=== PATIENT | female | born 1975 | race Caucasian/White ===

== ENCOUNTER 2020-10-31 12:47 | Outpatient (CLI) | payer OTHER, SELFPAY ==
[2020-11-04 22:26] LABS: Estradiol, Ultrasensitive 224 pg/mL
== END 2020-10-31 12:48 | disposition home or self-care (01) ==
LOC: CHSLAB 12:53
PROVIDERS: PCP Physician Assistant; Visit Provider Obstetrics & Gynecology
DX: N95.1 Menopausal and female climacteric states (principal)
CPT/HCPCS: 36415; 82670; 83001

== ENCOUNTER 2020-12-27 22:04 | Emergency (ER) | payer OTHER, SELFPAY ==
[2020-12-27 22:15] VITALS: BP 124/89; PULSE 88; RESP 20; TEMP 36.6; O2SAT 100
--- NOTE | 2020-12-27 22:24 | ED.EXTPRO ---
HPI - Extremity Problem General Chief complaint: Extremity Problem,Nontraumatic Stated complaint: R leg swelling Time Seen by Provider: 12/27/20 22:24 Source: patient Mode of arrival: ambulatory Limitations: no limitations History of Present Illness HPI Narrative: 45-year-old woman who has a history of smoking comes in today complaining of swelling pain of her right leg from her hip to her ankle. She said the symptoms started 2 days ago. She denies prior similar symptoms. She states for the last few weeks she has had a cough, some mild shortness of breath and nausea. She denies vomiting, chest pain, fever, recent surgery, and hormone use. MD Complaint: extremity pain Onset (ago): day(s) (2) Pain Consistency: constant Location: right and lower extremity Severity scale (1-10): 6 Quality: sharp Radiation: none Relieving factors: rest Exacerbating factors: walking Associated symptoms: shortness of breath Related Data Home Medications Medication Instructions Recorded Confirmed acetaminophen-codeine 1 tablet PO TID 12/27/20 12/27/20 albuterol sulfate 2 puff INHALATION PRN 12/27/20 12/27/20 cyclobenzaprine 10 mg PO TID 12/27/20 12/27/20 diazepam 5 mg PO HS 12/27/20 12/27/20 gabapentin 600 mg PO TID 12/27/20 12/27/20 trazodone 100 mg PO HS 12/27/20 12/27/20 venlafaxine 150 mg PO DAILY 12/27/20 12/27/20 Allergies Allergy/AdvReac Type Severity Reaction Status Date / Time No Known Allergies Allergy Mild Unverified 11/11/05 14:05 NKDA Allergy Mild Uncoded 09/11/05 11:21 NKFA Allergy Unknown Uncoded 12/06/02 12:22 NO KNOWN DRUG ALLERGIES Allergy Unknown Y Uncoded 09/11/05 11:21 (Class Allergy) Review of Systems Review of Systems: All systems reviewed & are unremarkable except as noted in HPI and below Constitutional: Constitutional: Denies chills and Denies fever(s) ENT: Denies nasal congestion and Denies sore throat Cardiovascular: Cardiovascular: Denies chest pain and Denies radiating jaw, neck or arm pain Respiratory: Respiratory: Reports cough and Reports dyspnea Gastrointestinal: Gastrointestinal: Denies abdominal pain, Reports nausea and Denies vomiting Genitourinary: Genitourinary: Denies nocturia and Denies dysuria Musculoskeletal: Musculoskeletal: Denies arthralgias and Denies joint swelling Integumentary/Breasts: Skin/Breast: Denies pruritus, Denies erythema and Denies rash Neurologic: Denies vertigo, Denies dizziness and Denies syncope Hematologic/Lymphatic: Hematologic/Lymphatic: Denies easy bleeding and Denies easy bruising Allergic/Immunologic: Allergic/Immunologic: Denies lip swelling and Denies throat swelling PMFSH Past Medical History Medical History (Updated 12/28/20 @ 00:09 by Edgar Blackwood MD) Fibromyalgia Surgical History Surgical History (Updated 12/27/20 @ 22:40 by Edgar Blackwood MD) History of hysterectomy Hx of cholecystectomy Social History Social History (Updated 12/27/20 @ 22:41 by Edgar Blackwood MD) Smoking status: Current every day smoker Substance use: current Substance use type: marijuana Living arrangements: with family Exam Const: General: healthy appearing, no acute distress and alert Orientation/consciousness: patient oriented x3 Limitations: no limitations Eyes: Conjunctivae: conjunctivae normal Pupils: Equal, round and reactive pupils present EOM: EOMs intact bilaterally Resp: Effort & Inspection: normal respiratory effort and not labored Auscultation: clear to auscultation bilaterally, no rales, no rhonchi and no wheezes Cardio: Rate: regular rate Rhythm: regular rhythm Heart sounds: no murmurs Skin: General skin exam: normal color, no jaundice and no pallor Rashes: no rashes Neuro: General: patient oriented x3, moves all extremities, no focal motor deficits and CN's II-XI intact bilaterally Speech: normal speech Extrem: General: normal to inspection and no clubbing, cyanosis or edema Other: Mild tendernes
--- NOTE | 2020-12-27 22:36 | ECG_ITS ---
Measurements Intervals [place] Rate: 85 P: 76 WI: 141 QRS: 35 QRSD: 105 T: 57 QT: 374 QTc: 446 Interpretive Statements SINUS RHYTHM INCOMPLETE RIGHT BUNDLE BRANCH BLOCK DELAYED PRECORDIAL R/S TRANSITION BORDERLINE ECG Electronically Signed On 12-28-2020 6:44:29 CDT by Kane Guy D.O.
[2020-12-27 22:46] LABS: Basophils Absolute Auto 0.05 K/mm3 (0.00-0.10); Basophils Percent Auto 0.6 % (0.0-1.0); Eosinophils Absolute Auto 0.23 K/mm3 (0.02-0.50); Eosinophils Percent Auto 2.9 % (1.0-6.0); Hematocrit 39.5 % (35.0-49.0); Hemoglobin 13.5 g/dL (12.0-15.0); Immature Granulocyte Absolute 0.03 K/mm3 (0.00-0.00); Immature Granulocyte Percent A 0.4 % (0.0-0.0); Lymphocytes Absolute Auto 2.42 K/mm3 (1.10-4.50); Lymphocytes Percent Auto 30.9 % (18.0-42.0); Mean Corpuscular HGB Conc 34.2 g/dL (32.0-36.0); Mean Corpuscular Hemoglobin 30.6 pg (27.0-31.0); Mean Corpuscular Volume 89.6 fL (78.0-102.0); Monocytes Absolute Auto 0.43 K/mm3 (0.10-0.90); Monocytes Percent Auto 5.5 % (2.0-11.0); Neutrophils Absolute Auto 4.7 K/mm3 (1.7-7.2); Neutrophils Percent Auto 59.7 % (50.0-70.0); Platelet Count Result 244 K/mm3 (150-420); Red Blood Count 4.41 M/mm3 (4.20-5.40); Red Cell Distribution Width 12.5 % (11.6-14.4); White Blood Count 7.8 K/mm3 (4.8-10.8)
[2020-12-27 23:00] LABS: D Dimer 0.34 mg/L (0.19-0.50); INR 1.1; Partial Thromboplastin Time 28.2 SEC (23.90-30.70); Prothrombin Time 11.4 Seconds (9.50-12.10)
[2020-12-27 23:12] LABS: Alanine Aminotransferase 16 U/L (14-59); Albumin Level 3.7 g/dL (3.4-5.0); Alkaline Phosphatase 59 U/L (46-116); Anion Gap 10 mmol/L (8-16); Aspartate Amino Transferase 12 U/L (15-37); Bilirubin,Total 0.3 mg/dL (0.00-1.00); Blood Urea Nitrogen 6 mg/dL (7-18); Calcium 8.6 mg/dL (8.5-10.1); Carbon Dioxide 27 mmol/L (21-32); Chloride 105 mmol/L (98-108); Estimated CRCL calculation 73 ml/min; Estimated Glomerular Filt Rate > 60; Glucose 88 mg/dL (70-99); NT Pro B Type Natriuretic Pept 65 pg/mL (0-125); Osmolality Calculated 290 mOsm/kg (285-295); Potassium 3.4 mmol/L (3.5-5.1); Sodium 142 mmol/L (136-145); Total Protein 6.8 g/dL (6.4-8.2); Troponin I 4.3 ng/L (0.00-60.4)
[2020-12-28 00:25] VITALS: BP 127/79; PULSE 81; RESP 18; TEMP 36.2; O2SAT 99
== END 2020-12-28 00:27 | disposition home or self-care (01) ==
PROVIDERS: Emergency Provider Emergency Medicine; PCP Physician Assistant
DX: M79.604 Pain in right leg (principal); M79.7 Fibromyalgia; F17.200 Nicotine dependence, unspecified, uncomplicated; Z90.710 Acquired absence of both cervix and uterus; Z90.49 Acquired absence of other specified parts of digestive tract
CPT/HCPCS: 36415; 80053; 83880; 84484; 85025; 85380; 85610; 85730; 93005; 99283; 99284

== ENCOUNTER 2021-02-13 16:51 | Outpatient (CLI) | payer OTHER, SELFPAY ==
[2021-02-13 19:34] LABS: SARS-CoV-2 RNA PCR Negative (Negative)
== END 2021-02-13 16:52 | disposition home or self-care (01) ==
PROVIDERS: PCP Physician Assistant; Visit Provider Physician Assistant
DX: Z20.822 Contact with and (suspected) exposure to COVID-19 (principal)
CPT/HCPCS: C9803; U0003; U0005

== ENCOUNTER 2022-05-19 09:14 | Outpatient (CLI) | payer OTHER, SELFPAY ==
--- NOTE | ~2022-05-19 | MMUS_ITS ---
CORRECTED REPORT order change J[facility] 05/20/22 This report was recreated on 05/20/22. Original report was signed by Isac Cleary M.D. 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 CAD analysis was submitted and interpreted. High resolution limited bilateral breast ultrasound was performed. COMPARISON: None, baseline BREAST PARENCHYMAL COMPOSITION: There are scattered areas of fibroglandular density. FINDINGS: MAMMOGRAPHIC FINDINGS: Right breast: No suspicious mass, calcification, or architectural distortion are identified to suggest malignancy. No mammographic correlate is identified for the reported palpable abnormality of concern. Left breast: No suspicious mass, calcification, or architectural distortion are identified to suggest malignancy. An asymmetry is present in the posterior third of the slightly inner breast which mostly disperses with spot compression. ULTRASOUND: There is no evidence of focal abnormal solid or cystic mass in the vicinity of the reported palpable abnormality of concern in the right breast. Two small cysts are present at the 11:00 location 9 cm from the nipple in the left breast which measure up to 4 mm. IMPRESSION: 1. No specific mammographic or sonographic correlate is identified for the reported palpable abnormalities concern in the right breast. Further evaluation at this time should be based on clinical assessment. Continued follow-up physical examination is recommended. 2. Recommend routine screening mammography in one year. BI-RADS Category 2: Benign finding(s). Reviewed, dictated and finalized at location A. CLE MONITOR TECHNICIAN MTDD IMPRESSION: 1. No specific mammographic or sonographic correlate is identified for the repo rted palpable abnormalities concern in the right breast. Further evaluation at this time should be based on clinical assessment. Continued follow-up physical examination is recommended. 2. Recommend routine screening mammography in one year. BI-RADS Category 2: Benign finding(s).
== END 2022-05-19 09:15 | disposition home or self-care (01) ==
LOC: CHSIMG 09:15
PROVIDERS: PCP Physician Assistant; Visit Provider Student in an Organized Health Care Education/Training Program
DX: N63.11 Unspecified lump in the right breast, upper outer quadrant (principal)
CPT/HCPCS: 76642; 77062; 77066; G0279

== ENCOUNTER 2022-07-07 10:38 | Emergency (ER) | payer OTHER, SELFPAY ==
[2022-07-07 10:40] VITALS: BP 119/86; PULSE 96; RESP 16; TEMP 36.8; O2SAT 98
[2022-07-07 10:42] VITALS: BP 119/96; PULSE 96; RESP 14; TEMP 36.8; O2SAT 98
--- NOTE | 2022-07-07 11:03 | ED.GENADULT ---
HPI - General Adult General Chief complaint: Extremity Injury, Lower Stated complaint: right leg pain Time Seen by Provider: 07/07/22 10:57 History of Present Illness HPI narrative: The patient is a 46-year-old woman with history of fibromyalgia for which she takes gabapentin 600 mg p.o. t.i.d. as well as Flexeril 10 mg t.i.d.. She does have history of anxiety for which she takes diazepam 5 mg at nighttime. Also with hypertension. She has had a total hysterectomy. She does lift objects at work. She also supported her mother who almost fell 2 days ago. She broke her fall. Soon after that event, the patient noticed pain in the right lower back more lateral than medial that radiates down the right leg to the toes. The pain has increased in intensity, is constant in nature, worsened by movement or raising of the right leg. No pain on the left side. No falls. No other trauma. No urinary symptoms. She has taken Tylenol for this pain. She cannot take NSAIDs. Related Data Home Medications Medication Instructions Recorded Confirmed albuterol sulfate 90 mcg/actuation 2 puff inhalation PRN 12/27/20 07/07/22 aerosol inhaler cyclobenzaprine 10 mg tablet 10 mg PO TID 12/27/20 07/07/22 diazepam 5 mg tablet 5 mg PO HS 12/27/20 07/07/22 gabapentin 600 mg tablet 600 mg PO TID 12/27/20 07/07/22 venlafaxine 150 mg 150 mg PO DAILY 12/27/20 07/07/22 capsule,extended release 24 hr atenolol 50 mg tablet 50 mg PO DAILY 05/05/22 07/07/22 Allergies Allergy/AdvReac Type Severity Reaction Status Date / Time Iodinated Contrast Media Allergy Intermediate Rash Verified 07/07/22 10:56 meloxicam Allergy Intermediate Rash Verified 07/07/22 10:56 Review of Systems Review of Systems: All systems reviewed & are unremarkable except as noted in HPI and below Constitutional: Constitutional: Reports no additional constitutional complaints, Denies anorexia, Denies body ache(s), Denies chills, Denies excessive sweating, Denies fatigue, Denies fever(s), Denies frequent falls, Denies headache(s), Denies malaise and Denies poor appetite Eyes: Eyes: Reports no additional eye complaints, Denies blurry vision, Denies change in vision, Denies irritation, Denies itchy eyes and Denies photophobia ENT: Reports system reviewed and no additional complaints, except as documented, Reports Normal hearing present, Denies change in voice, Denies dysphagia, Denies vertigo, Denies dizziness, Denies ear discharge, Denies headache(s), Denies hearing loss, Denies hoarseness, Denies nasal congestion, Denies neck pain, Denies sinus pressure, Denies sore throat and Denies throat swelling Cardiovascular: Cardiovascular: Reports no additional cardiovascular complaints, Denies chest pain, Denies syncope, Denies rapid heart rate, Denies irregular heart rhythm, Denies leg edema, Denies dyspnea and Denies slow heart rate Respiratory: Respiratory: Reports no additional respiratory complaints, Denies cough, Denies dyspnea, Denies stridor and Denies wheezing Gastrointestinal: Gastrointestinal: Reports no additional gastrointestinal complaints, Denies abdominal pain, Denies melena, Denies hematochezia, Denies dysphagia, Denies diarrhea, Denies nausea and Denies vomiting Genitourinary: Genitourinary: Denies hematuria, Denies urinary frequency, Denies dysuria, Denies flank pain and Denies urinary urgency Musculoskeletal: Musculoskeletal: Reports no additional musculoskeletal complaints, Reports abnormal gait, Reports back pain ( Right lower back pain radiates to the right leg and foot), Denies myalgias, Denies arthralgias, Denies joint swelling, Denies limited range of motion, Denies muscle cramps, Denies muscle weakness, Denies neck pain and Denies numbness Integumentary/Breasts: Skin/Breast: Reports system reviewed and no additional complaints, except as docu, Denies breast pain, Denies change in pigmentation, Denies pruritus, Denies erythema and Denies wounds Neurologic: Reports system revi
[2022-07-07 11:20] VITALS: BP 121/64; PULSE 84; RESP 18; TEMP 36.7; O2SAT 98
[2022-07-07] MEDS: ORPHENADRINE CITRATE 30 MG/ML 2 ML VIAL 60 MG IM (11:50)
[2022-07-07] MEDS: HYDROmorphone HCL INJ (*CRX) 2 MG/ML VIAL 1 MG IM (11:50)
[2022-07-07 12:02] LABS: Add Urine Microscopic? YES; Bilirubin Urine Negative (Negative); Blood Urine Trace-Intact (Negative); Color Urine Yellow (Yellow); Glucose Urine UA Negative (Negative); Ketones Urine Trace (Negative); Leukocyte Esterase Ur Negative LEU/UL (Negative); Nitrate Urine Negative (Negative); Protein Urine Negative (Negative); Specific Grav Ur 1.025 (1.010-1.020); Urobilinogen Urine 0.2 mg/dL (0.2-1.0)
[2022-07-07 12:07] LABS: Appearance Urine Cloudy (Clear); RBC Urine 0-2 /hpf (0-2); Squamous Epithelial Cell Urine Moderate /hpf (Few); WBC Urine None seen /hpf (0-3)
[2022-07-07 12:08] LABS: Bacteria Urine 2+ /hpf; Mucus Urine Moderate /lpf
[2022-07-07 12:09] LABS: Amphetamine Screen Urine Negative (Negative); Barbiturate Screen Urine Negative (Negative); Benzodiazepines Screen Urine Positive (Negative); Cannabinoid Screen Urine Positive (Negative); Cocaine Screen Urine Negative (Negative); Methadone Screen Urine Negative (Negative); Opiate Screen Urine Positive (Negative); Phencyclidine Screen Urine Negative (Negative)
[2022-07-07 12:40] VITALS: BP 113/77; PULSE 80; RESP 12; TEMP 36.8; O2SAT 97
== END 2022-07-07 12:46 | disposition home or self-care (01) ==
PROVIDERS: Emergency Provider Emergency Medicine
DX: M54.41 Lumbago with sciatica, right side (principal); F41.9 Anxiety disorder, unspecified; I10 Essential (primary) hypertension; J45.909 Unspecified asthma, uncomplicated; F17.200 Nicotine dependence, unspecified, uncomplicated; Z79.899 Other long term (current) drug therapy
CPT/HCPCS: 80307; 81001; 96372; 99284; J1170; J2360

== ENCOUNTER 2022-09-16 13:08 | Emergency (ER) | payer OTHER, SELFPAY ==
--- NOTE | 2022-09-16 13:10 | ED.NECK ---
HPI - Neck Pain/Injury General Chief Complaint: Neck Pain/Injury Stated Complaint: left neck, arm pain Time Seen by Provider: 09/16/22 13:09 Source: patient and RN notes reviewed Mode of arrival: ambulatory Limitations: no limitations History of Present Illness complaint: neck pain Onset (ago): day(s) (2) Place: home Severity: moderate Quality: dull, aching and throbbing Duration: constant Relieving factors: none Exacerbating factors: movement of extremity and movement of neck Context: unknown ( history of fibromyalgia) Associated symptoms: tingling Treatments prior to arrival: acetaminophen, ibuprofen and other ( Flexeril) Related Data Home Medications Medication Instructions Recorded Confirmed albuterol sulfate 90 mcg/actuation 2 puff inhalation PRN 12/27/20 09/16/22 aerosol inhaler cyclobenzaprine 10 mg tablet 10 mg PO TID 12/27/20 09/16/22 diazepam 5 mg tablet 5 mg PO HS 12/27/20 09/16/22 gabapentin 600 mg tablet 600 mg PO TID 12/27/20 09/16/22 venlafaxine 150 mg 150 mg PO DAILY 12/27/20 09/16/22 capsule,extended release 24 hr atenolol 50 mg tablet 50 mg PO DAILY 05/05/22 09/16/22 Allergies Allergy/AdvReac Type Severity Reaction Status Date / Time Iodinated Contrast Media Allergy Intermediate Rash Verified 09/16/22 13:12 meloxicam Allergy Intermediate Rash Verified 09/16/22 13:12 Review of Systems Review of Systems: All systems reviewed & are unremarkable except as noted in HPI and below PMFSH Past Medical History Medical History Anxiety Asthma Fibromyalgia Hypertension Surgical History Surgical History History of dilation and curettage 2005, 09/2005 History of hysterectomy (~11/11/05) History of laparoscopy (~09/2005) Hx of cholecystectomy (~2014) Family History Family History Mother Hypertension Grandparent Acute myocardial infarction maternal grandfather maternal grandmother Family history of stroke maternal grandmother Social History Social History Smoking status: Current every day smoker Alcohol intake: never Substance use: current Substance use type: marijuana Living arrangements: with family Occupation/Education: occupation Gender identity (if verbalized by the patient): Female Sexual Orientation (if Verbalized by the Patient): Straight or Heterosexual Exam Const: General: healthy appearing, no acute distress and alert Nutritional Appearance: well nourished Orientation/consciousness: patient oriented x3 Limitations: no limitations Other: female nurse in room during examination. HENMT: Head: normal to inspection Ears: external ears normal Face/Nose/Sinus: Normal external nose present Face and sinus: normal facial exam Mouth: Yes moist mucous membranes Eyes: Conjunctivae: conjunctivae normal Pupils: Equal, round and reactive pupils present EOM: EOMs intact bilaterally Neck: Neck: normal visual inspection Resp: Effort & Inspection: normal respiratory effort Auscultation: clear to auscultation bilaterally Cardio: Rate: regular rate Rhythm: regular rhythm GI: GI Palp: Yes Soft to palpation and No Tenderness to palpation present (GI) Auscultation: normal bowel sounds Back/Spine/Pelvis: Cervical Spine: cervical muscular tenderness ( Moderate left in the area of C4-C5), pain with cervical ROM (left), cervical spasm ( down into the trapezius), No Cervical spine tenderness, cervical ROM abnormal ( decreased ROM with active ROM full ROM with passive ROM) and other ( pain with Spurling's maneuver reproduces her symptoms.) Thoracic/Lumbar Spine: thoraco-lumbar ROM normal Skin: General skin exam: normal color Rashes: no rashes Neuro: General: patient oriented x3, moves all extremities and CN's II-XI intact bilaterally Mariah
[2022-09-16 13:11] VITALS: BP 150/97; PULSE 71; RESP 18; TEMP 36.8; O2SAT 99
[2022-09-16 13:14] VITALS: BP 150/97; PULSE 71; RESP 18; TEMP 36.8; O2SAT 99
--- NOTE | 2022-09-16 13:18 | PC.NURSE ---
assisted with exam
[2022-09-16] MEDS: ORPHENADRINE CITRATE 30 MG/ML 2 ML VIAL 60 MG IM (13:35)
--- NOTE | 2022-09-16 13:56 | PC.NURSE ---
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 PT HAD REFUSED TORADOL, STATING SHE IS NOT SUPPOSED TO TAKE IT, IT THROWS ME INTO AN ASTHMA ATTACK . PT POLITELY ADVISED THIS RN SHE COULD FUCK OFF. I ADVISED PT WHEN SHE WAS READY TO SPEAK APPROPRIATELY TO STAFF, I WOULD BE MORE THAN HAPPY TO ASSIST HER WITH HER ISSUES. PT THEN COMES OUT TO THE DESK WANTING A NOTE FOR THE 3 DAYS OF WORK SHE HAS MISSED. I OFFERED TO GIVE HER A NOTE FOR THE VISIT FOR TODAY, WAS AGAIN TOLD TO FUCK OFF AND SHE LEFT WITHOUT THE NOTE.
== END 2022-09-16 13:45 | disposition home or self-care (01) ==
LOC: CHSED 13:37
PROVIDERS: Emergency Provider Emergency Medicine; PCP Physician Assistant
DX: S16.1XXA Strain of muscle, fascia and tendon at neck level, initial encounter (principal); I10 Essential (primary) hypertension; F41.9 Anxiety disorder, unspecified; F17.200 Nicotine dependence, unspecified, uncomplicated; X58.XXXA Exposure to other specified factors, initial encounter
CPT/HCPCS: 96372; 99283; J2360

== ENCOUNTER 2022-11-13 13:37 | Emergency (ER) | payer OTHER, SELFPAY ==
--- NOTE | ~2022-11-13 | XR_ITS ---
EXAMINATION: XR chest 2V DATE: 11/13/2022 14:24 INDICATION: Left sided chest pain TECHNIQUE: PA and lateral views of the chest are obtained. COMPARISON: 10/03/2014 FINDINGS: The lungs are free of acute opacities. No pleural effusion or pneumothorax. The cardiomedia stinal silhouette is normal. There is mild thoracic spondylosis. Surgical clips in the right upper qu adrant are likely from prior cholecystectomy. IMPRESSION: 1. No acute cardiopulmonary abnormality. Reviewed, dictated and finalized at location L.
[2022-11-13 13:44] VITALS: BP 110/75; PULSE 70; TEMP 36.1; O2SAT 96
[2022-11-13 13:55] VITALS: PULSE 65; O2SAT 96
[2022-11-13 14:40] VITALS: BP 131/62; PULSE 90; RESP 20; O2SAT 96
[2022-11-13 14:44] LABS: Basophils Absolute Auto 0.05 K/mm3 (0.00-0.10); Basophils Percent Auto 0.7 % (0.0-1.0); Eosinophils Absolute Auto 0.24 K/mm3 (0.02-0.50); Eosinophils Percent Auto 3.4 % (1.0-6.0); Hematocrit 39.8 % (35.0-49.0); Hemoglobin 13.5 g/dL (12.0-15.0); Immature Granulocyte Absolute 0.01 K/mm3 (0.00-0.00); Immature Granulocyte Percent A 0.1 % (0.0-0.0); Lymphocytes Absolute Auto 3.35 K/mm3 (1.10-4.50); Lymphocytes Percent Auto 47.1 % (18.0-42.0); Mean Corpuscular HGB Conc 33.9 g/dL (32.0-36.0); Mean Corpuscular Volume 91.3 fL (78.0-102.0); Mean Platelet Volume 9.4 fl (9.2-11.8); Monocytes Absolute Auto 0.41 K/mm3 (0.10-0.90); Monocytes Percent Auto 5.8 % (2.0-11.0); Neutrophils Absolute Auto 3.1 K/mm3 (1.7-7.2); Neutrophils Percent Auto 42.9 % (50.0-70.0); Platelet Count Result 275 K/mm3 (150-420); Red Blood Count 4.36 M/mm3 (4.20-5.40); White Blood Count 7.1 K/mm3 (4.8-10.8)
[2022-11-13 14:51] LABS: Partial Thromboplastin Time 30.3 SEC (23.90-30.70); Prothrombin Time 11.1 Seconds (9.50-12.10)
[2022-11-13 14:56] LABS: Alanine Aminotransferase 13 U/L (14-59); Albumin Level 3.5 g/dL (3.4-5.0); Alkaline Phosphatase 65 U/L (46-116); Anion Gap 9 mmol/L (8-16); Aspartate Amino Transferase 17 U/L (15-37); Bilirubin,Total 0.3 mg/dL (0.00-1.00); Blood Urea Nitrogen 5 mg/dL (7-18); Calcium 8.8 mg/dL (8.5-10.1); Carbon Dioxide 26 mmol/L (21-32); Chloride 104 mmol/L (98-108); Estimated CRCL calculation 72 ml/min; Estimated Glomerular Filt Rate > 60; Glucose 96 mg/dL (70-99); Lipase 38 U/L (16-77); Osmolality Calculated 285 mOsm/kg (285-295); Potassium 3.3 mmol/L (3.5-5.1); Sodium 139 mmol/L (136-145); Total Protein 6.9 g/dL (6.4-8.2); Troponin I 5.4 ng/L (0.00-60.4)
--- NOTE | 2022-11-13 15:18 | ED.CHESTPAIN ---
HPI - Chest Pain General Chief Complaint: Chest Pain Stated Complaint: chest pain/pain in arm Time Seen by Provider: 11/13/22 13:41 Source: patient Mode of arrival: ambulatory Limitations: no limitations History of Present Illness HPI narrative: this is a 47-year-old female that presents with left-sided chest discomfort that is from radiating to her left arm started earlier today and it is reproducible with palpation with no shortness of breath no fever chills no nausea vomiting no diaphoresis. The patient has a history of fibromyalgia. MD complaint: chest pain and chest discomfort Onset (ago): hour(s) Timing of current episode: constant Prior episodes: Yes Onset: during rest Related Data Home Medications Medication Instructions Recorded Confirmed albuterol sulfate 90 mcg/actuation 2 puff inhalation PRN 12/27/20 11/13/22 aerosol inhaler cyclobenzaprine 10 mg tablet 10 mg PO TID 12/27/20 11/13/22 diazepam 5 mg tablet 5 mg PO HS 12/27/20 11/13/22 gabapentin 600 mg tablet 600 mg PO TID 12/27/20 11/13/22 venlafaxine 150 mg 150 mg PO DAILY 12/27/20 11/13/22 capsule,extended release 24 hr atenolol 50 mg tablet 50 mg PO DAILY 05/05/22 11/13/22 Allergies Allergy/AdvReac Type Severity Reaction Status Date / Time Iodinated Contrast Media Allergy Intermediate Rash Verified 11/13/22 13:52 meloxicam Allergy Intermediate Rash Verified 11/13/22 13:52 Review of Systems Review of Systems: All systems reviewed & are unremarkable except as noted in HPI and below PMFSH Past Medical History Medical History Anxiety Asthma Fibromyalgia Hypertension Surgical History Surgical History History of dilation and curettage 2005, 09/2005 History of hysterectomy (~11/11/05) History of laparoscopy (~09/2005) Hx of cholecystectomy (~2014) Family History Family History Mother Hypertension Grandparent Acute myocardial infarction maternal grandfather maternal grandmother Family history of stroke maternal grandmother Social History Social History Smoking status: Current every day smoker Alcohol intake: never Substance use: current Substance use type: marijuana Living arrangements: with family Occupation/Education: occupation Gender identity (if verbalized by the patient): Female Sexual Orientation (if Verbalized by the Patient): Straight or Heterosexual Exam Const: General: healthy appearing Nutritional Appearance: well nourished Orientation/consciousness: patient oriented x3 Limitations: no limitations HENMT: Head: normal to inspection Eyes: Conjunctivae: conjunctivae normal Pupils: Equal, round and reactive pupils present Neck: Neck: normal visual inspection Chest: Chest palpation & inspection: normal inspection of the chest and tenderness Other: Reproducible chest wall tenderness with palpation Cardio: Rate: regular rate Rhythm: regular rhythm GI: GI Palp: Yes Soft to palpation Auscultation: normal bowel sounds : General: Yes bladder normal to palpation Back/Spine/Pelvis: Back: no CVA tenderness Skin: General skin exam: normal color Neuro: General: patient oriented x3 Extrem: General: normal to inspection Psych: Mental Status: mental status grossly normal Affect: normal affect Course Course Emergency Course: patient declined pain medication, did receive IV fluids troponins EKG reviewed were reviewed with patient and within normal limits, EKG shows normal sinus rhythm the patient is feeling better. Labs reviewed did show that there was a diminished potassium level and patient given a dose of p.o. potassium. Vital Signs Vital signs: Vital Signs Temperature 36.1 C L 11/13/22 13:44 Pulse Rate 70 11/13/22 13:44 Blood
[2022-11-13] MEDS: POTASSIUM BICARBONATE 25 MEQ TABEF 50 MEQ PO (15:30)
[2022-11-13 15:35] VITALS: BP 121/65; PULSE 85; RESP 18; TEMP 36.3; O2SAT 97
== END 2022-11-13 15:41 | disposition home or self-care (01) ==
PROVIDERS: Emergency Provider Emergency Medicine; PCP Physician Assistant
DX: M79.7 Fibromyalgia (principal); R07.89 Other chest pain; E87.6 Hypokalemia; F41.9 Anxiety disorder, unspecified; I10 Essential (primary) hypertension; F17.200 Nicotine dependence, unspecified, uncomplicated
CPT/HCPCS: 36415; 71046; 80053; 83690; 84484; 85025; 85610; 85730; 93005; 99284; A9270

== ENCOUNTER 2023-07-21 18:08 | Emergency (ER) | payer OTHER, SELFPAY ==
[2023-07-21] VITALS (35 sets, daily range): BP systolic 121–163; BP diastolic 85–102; PULSE 52–85; RESP 6–24; TEMP 36.3–36.8; O2SAT 94–100
--- NOTE | ~2023-07-21 | XR_ITS ---
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 RESULT: Lines, tubes, and devices: Cholecystectomy clips. Lungs and pleura: Clear. Cardiomediastinal silhouette: Stable. Other: No acute osseous or upper abdominal finding. IMPRESSION: No acute cardiopulmonary process. Reviewed, dictated and finalized at location K. OPOLITAN EDITOR
--- NOTE | 2023-07-21 18:10 | ECG_ITS ---
Measurements Intervals [place] Rate: 62 P: 27 AR: 142 QRS: 25 QRSD: 92 T: 30 QT: 400 QTc: 409 Interpretive Statements SINUS RHYTHM COMPARED TO ECG 11/13/2022 13:54:21 NO SIGNIFICANT CHANGES Electronically Signed On 07-22-2023 14:59:31 CRIMINOLOGY PROFESSOR by Radha Rouse M.D.
--- NOTE | 2023-07-21 18:12 | ED.CHESTPAIN ---
HPI - Chest Pain General Chief Complaint: Chest Pain Stated Complaint: chest pain Time Seen by Provider: 07/21/23 18:10 Source: patient Mode of arrival: ambulatory Limitations: no limitations History of Present Illness HPI narrative: patient is a 47-year-old female with prior VA 7 months ago per history and was started on atenolol and discharged from the emergency room after being monitored for 24 hours. She is here with some chest pain across her entire front chest upper area for the past 2 days. Her uncle of a heart attack as well in the past year. She has chest pain on and off but mostly on for the past 2 days. She is very anxious about this chest pain. MD complaint: chest pain and chest discomfort Pertinent past history: coronary artery disease and prior VA Onset (ago): day(s) (2) Timing of current episode: constant Prior episodes: Yes Onset: during rest and during exertion Pain location: substernal, left chest and right chest Pain radiation: left arm Severity: moderate Pain scale (0-10): 6 Quality: tightness, heaviness and sharp Relieving factors: nothing Exacerbating factors: nothing Treatment prior to arrival: none Risk Factors Coronary artery disease risk factors: hypertension and family history of CAD before age 50 Thoracic aortic dissection risk factors: none Related Data On Oral Contraceptives: No Home Medications Medication Instructions Recorded Confirmed albuterol sulfate 90 mcg/actuation 2 puff inhalation PRN 12/27/20 07/21/23 aerosol inhaler cyclobenzaprine 10 mg tablet 10 mg PO TID 12/27/20 07/21/23 gabapentin 600 mg tablet 600 mg PO TID 12/27/20 07/21/23 venlafaxine 150 mg 150 mg PO DAILY 12/27/20 07/21/23 capsule,extended release 24 hr atenolol 50 mg tablet 50 mg PO DAILY 05/05/22 07/21/23 Allergies Allergy/AdvReac Type Severity Reaction Status Date / Time Iodinated Contrast Media Allergy Intermediate Rash Verified 07/21/23 19:02 meloxicam Allergy Intermediate Rash Verified 07/21/23 18:15 Review of Systems Review of Systems: All systems reviewed & are unremarkable except as noted in HPI and below Constitutional: Constitutional: Reports no additional constitutional complaints Eyes: Eyes: Reports no additional eye complaints ENT: Reports system reviewed and no additional complaints, except as documented Cardiovascular: Cardiovascular: Reports no additional cardiovascular complaints Respiratory: Respiratory: Reports no additional respiratory complaints Gastrointestinal: Gastrointestinal: Reports no additional gastrointestinal complaints Genitourinary: Genitourinary: Reports no additional female genitourinary complaints Musculoskeletal: Musculoskeletal: Reports no additional musculoskeletal complaints Integumentary/Breasts: Skin/Breast: Reports system reviewed and no additional complaints, except as docu Neurologic: Reports system reviewed and no additional complaints, except as documented Psychiatric: Psychiatric: Reports no additional psychiatric complaints Endocrine: Endocrine: Reports no additional endocrine complaints Hematologic/Lymphatic: Hematologic/Lymphatic: Reports no additional hematologic/lymphatic complaints Allergic/Immunologic: Allergic/Immunologic: Reports no additional allergic/immunologic complaints PMFSH Past Medical History Medical History Anxiety Asthma Fibromyalgia Hypertension Surgical History Surgical History History of dilation and curettage 2005, 09/2005 History of hysterectomy (~11/11/05) History of laparoscopy (~09/2005) Hx of cholecystectomy (~2014) Family History Family History Mother Hypertension Grandparent Acute myocardial infarction maternal grandfather maternal grandmother Family history of stroke maternal grandmother Social History Soc
[2023-07-21 18:31] LABS: Basophils Absolute Auto 0.05 K/mm3 (0.00-0.10); Basophils Percent Auto 0.7 % (0.0-1.0); Eosinophils Absolute Auto 0.31 K/mm3 (0.02-0.50); Hematocrit 44.1 % (35.0-49.0); Hemoglobin 14.9 g/dL (12.0-15.0); Immature Granulocyte Absolute 0.02 K/mm3 (0.00-0.00); Immature Granulocyte Percent A 0.3 % (0.0-0.0); Lymphocytes Absolute Auto 3.21 K/mm3 (1.10-4.50); Lymphocytes Percent Auto 41.8 % (18.0-42.0); Mean Corpuscular HGB Conc 33.8 g/dL (32.0-36.0); Mean Corpuscular Hemoglobin 31.1 pg (27.0-31.0); Mean Corpuscular Volume 92.1 fL (78.0-102.0); Mean Platelet Volume 9.3 fl (9.2-11.8); Monocytes Absolute Auto 0.41 K/mm3 (0.10-0.90); Monocytes Percent Auto 5.3 % (2.0-11.0); Neutrophils Absolute Auto 3.7 K/mm3 (1.7-7.2); Neutrophils Percent Auto 47.9 % (50.0-70.0); Platelet Count Result 268 K/mm3 (150-420); Red Blood Count 4.79 M/mm3 (4.20-5.40); Red Cell Distribution Width 13.4 % (11.6-14.4); White Blood Count 7.7 K/mm3 (4.8-10.8)
[2023-07-21 18:44] LABS: D Dimer 0.19 mg/L (0.19-0.50)
[2023-07-21 18:52] LABS: Alanine Aminotransferase 15 U/L (14-59); Albumin Level 3.6 g/dL (3.4-5.0); Alkaline Phosphatase 57 U/L (46-116); Anion Gap 8 mmol/L (8-16); Aspartate Amino Transferase 18 U/L (15-37); Bilirubin,Total 0.4 mg/dL (0.00-1.00); Blood Urea Nitrogen 6 mg/dL (7-18); Calcium 8.4 mg/dL (8.5-10.1); Carbon Dioxide 30 mmol/L (21-32); Chloride 99 mmol/L (98-108); Estimated Glomerular Filt Rate > 60; Glucose 109 mg/dL (70-99); Osmolality Calculated 282 mOsm/kg (285-295); Potassium 3.3 mmol/L (3.5-5.1); Sodium 137 mmol/L (136-145); Total Protein 7.2 g/dL (6.4-8.2); Troponin I 7.7 ng/L (0.00-60.4)
[2023-07-21 18:52] LABS: Appearance Urine Clear (Clear); Bilirubin Urine Negative (Negative); Blood Urine Trace-Intact (Negative); Color Urine Light Yellow (Yellow); Glucose Urine UA Negative (Negative); Ketones Urine Negative (Negative); Leukocyte Esterase Ur Negative LEU/UL (Negative); Nitrate Urine Negative (Negative); Protein Urine Negative (Negative); Specific Grav Ur <= 1.005 (1.010-1.020); Urobilinogen Urine 0.2 mg/dL (0.2-1.0)
[2023-07-21 18:53] LABS: Lipase 27 U/L (16-77)
[2023-07-21 18:56] LABS: Add Urine Microscopic? YES; RBC Urine 0-2 /hpf (0-2); WBC Urine 0-3 /hpf (0-3)
[2023-07-21 18:57] LABS: Bacteria Urine Trace /hpf; Squamous Epithelial Cell Urine Rare /hpf (Few)
[2023-07-21 18:58] LABS: Amphetamine Screen Urine Negative (Negative); Barbiturate Screen Urine Negative (Negative); Benzodiazepines Screen Urine Positive (Negative); Cannabinoid Screen Urine Positive (Negative); Cocaine Screen Urine Negative (Negative); Methadone Screen Urine Negative (Negative); Opiate Screen Urine Positive (Negative); Phencyclidine Screen Urine Negative (Negative)
[2023-07-21] MEDS: ONDANSETRON INJ 4 MG/2 ML VIAL IV PUSH (19:06)
[2023-07-21] MEDS: MORPHINE SULFATE (*CRX) 2 MG/ML INJ IV PUSH (19:07)
[2023-07-21] MEDS: cloNIDine HCL 0.1 MG TABLET PO (19:52)
[2023-07-21 21:18] LABS: Magnesium 1.5 mg/dL (1.8-2.4); Troponin I 9.2 ng/L (0.00-60.4)
[2023-07-21] MEDS: MAGNESIUM OXIDE 400 MG TABLET 800 MG PO (21:41)
[2023-07-21] MEDS: POTASSIUM CHLORIDE 20 MEQ ER TABLET PO (21:41)
--- NOTE | 2023-07-22 00:11 | PC.NURSE ---
MONI Reddy at [facility] called to request pt labs be faxed over to them at [phone]
== END 2023-07-21 22:35 | disposition short-term general hospital (02) ==
PROVIDERS: Emergency Provider Emergency Medicine; PCP Physician Assistant
DX: R07.2 Precordial pain (principal); I25.2 Old myocardial infarction; I10 Essential (primary) hypertension; F17.200 Nicotine dependence, unspecified, uncomplicated; Z79.899 Other long term (current) drug therapy
CPT/HCPCS: 36415; 71046; 80053; 80307; 81001; 83690; 83735; 84484; 85025; 85380; 93005; 96374; 96375; 99285; A9270; J2270; J2405

== ENCOUNTER 2023-07-21 22:40 | Observation (INO) | payer OTHER, SELFPAY ==
--- NOTE | ~2023-07-21 | XR_ITS ---
EXAMINATION: XR chest 1V portable DATE: 07/22/2023 08:48 INDICATION: Chest pain TECHNIQUE: frontal view of the chest was obtained. COMPARISON: Chest radiograph dated 07/21/2023 FINDINGS: The lungs remain clear with no focal airspace opacities, pulmonary edema, pleural effusion or pneumot horax. The cardiomediastinal silhouette is normal. Visualized bones and soft tissues are unremarkable . IMPRESSION: 1. No acute cardiopulmonary disease. Reviewed, dictated and finalized at location A. LOOP MACHINE OPERATOR
--- NOTE | ~2023-07-21 | NM_ITS ---
EXAMINATION: NM naidr stress w perfusion DATE: 07/22/2023 13:59 INDICATION: Chest pain TECHNIQUE: Rest images were obtained following intravenous administration of 10.3 mCi Tc99m tetrofosm in (Myoview). The patient was infused intravenously with Lexiscan (Regadenoson). Then, 29.7 mCi Tc99m tetrofosmin (Myoview) was administered intravenously, and stress images were obtained. Data was freida nstructed into short axis and horizontal and vertical long axis SPECT images. Gated SPECT images were also obtained. COMPARISON: None. FINDINGS: There is no definite reversible or fixed perfusion abnormality to suggest ischemia or infar ction. There is normal left ventricular chamber size, wall motion and ejection fraction. Left ventr icular ejection fraction measures >70%. IMPRESSION: 1. Normal myocardial perfusion at rest and during stress. 2. Left ventricular ejection fraction measuring >70%. Reviewed, dictated and finalized at location A. TECHNOLOGIST/CYTOLOGY SUPERVISOR
[2023-07-21 23:15] VITALS: BP 143/98; PULSE 62; RESP 18; TEMP 36.7; O2SAT 98; BMI 26.3
--- NOTE | 2023-07-21 23:15 | ADMGEN ---
This patient, Kayla Means, was admitted to IMU Room 206-02. Patient/family oriented to hospital policies and general routines including ID bracelet, bed and alarms, visiting hours, pain management, procedures, bathroom and other care routines, personal items, smoking policy, room service/diet, and visiting hours. Information on how to activate the Rapid Response Team has been discussed. Patient/Family are encouraged to report perceived risks to care and to ask questions if they do not understand what they are told or what they should do.
--- NOTE | 2023-07-21 23:25 | PM.IMHP ---
H&P: HPI History of Present Illness Date/Time: 07/21/23 23:25 Chief Complaint: Chest pain Narrative: This is a 47-year-old female with past medical history significant for fibromyalgia, tobacco dependence, generalized anxiety disorder, asthma. Patient presents to the emergency room due to retrosternal a chest pain with radiation to the precordial area and arm on an of lasting throughout the day patient took her usual medications with no relief. Had some nausea associated with it, it is like pressure rated at 7/10 in intensity. Patient has been in her usual state of health denies any fevers, rigors, chills, cough, sputum production. Preliminary workup has been essentially nonrevealing. EXAMINATION:? XR chest 2V Exam Date/Time:? 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 Comparison:? 11/13/2022. RESULT: Lines, tubes, and devices:? Cholecystectomy clips. Lungs and pleura:? Clear. Cardiomediastinal silhouette:? Stable. Other:? No acute osseous or upper abdominal finding. ? IMPRESSION: No acute cardiopulmonary process. Review of Systems Review of Systems: Retrosternal chest pain with radiation to the precordial area and arm Constitutional: Constitutional: Denies chills, Denies fatigue, Denies fever(s), Denies malaise, Denies night sweats and Denies weakness Eyes: Eyes: Denies change in vision ENT: Denies dysphagia and Denies odynophagia Cardiovascular: Cardiovascular: Reports chest pain, Denies leg edema, Reports radiating jaw, neck or arm pain and Denies palpitations Respiratory: Respiratory: Denies cough and Denies dyspnea Gastrointestinal: Gastrointestinal: Denies abdominal pain, Reports nausea and Denies vomiting Genitourinary: Genitourinary: Denies dysuria and Denies flank pain Musculoskeletal: Musculoskeletal: Denies arthralgias Integumentary/Breasts: Skin/Breast: Denies rash Neurologic: Denies focal weakness and Denies Sensory deficit (Neuro) Psychiatric: Psychiatric: Reports no additional psychiatric complaints and Reports as per HPI Endocrine: Endocrine: Reports no additional endocrine complaints and Reports as per HPI Hematologic/Lymphatic: Hematologic/Lymphatic: Reports no additional hematologic/lymphatic complaints and Reports as per HPI Allergic/Immunologic: Allergic/Immunologic: Reports no additional allergic/immunologic complaints and Reports as per HPI [facility] Past Medical History Medical History (Updated 07/22/23 @ 05:20 by Nelly Salas MD) Anxiety Asthma Fibromyalgia Hypertension Surgical History Surgical History History of dilation and curettage 2005, 09/2005 History of hysterectomy (~11/11/05) History of laparoscopy (~09/2005) Hx of cholecystectomy (~2014) Family History Family History Mother Hypertension Grandparent Acute myocardial infarction maternal grandfather maternal grandmother Family history of stroke maternal grandmother Social History Social History Smoking packs per day: 1 Smoking cigarettes per day: 20.0 Years smoked: 20 Smoking pack-years: 20.00 Smoking status: Current every day smoker Tobacco type: cigarettes Alcohol intake: never Substance use: current Substance use type: marijuana Do You Feel Safe in your Home?: Yes Lack of Transportation: No Lack of Food: Never True Current Housing: I Have Housing Concerned About Future Housing: No Difficulty Paying Gas/Electric Bills: No Difficulty Paying for Meds: No Currently Unemployed: No Education: High School Diploma/GED Difficulty w/ Childcare or Family Care: No Living arrangements: with family Occupation/Education: occupation Gender identity (if verbalized by the patient): Female Sexual Orientation (if Verbalized by the Patient): Straight or Heterosexua
[2023-07-22] VITALS (14 sets, daily range): BP systolic 90–120; BP diastolic 50–72; PULSE 53–73; RESP 15–19; TEMP 36.4–36.8; O2SAT 95–99
[2023-07-22] MEDS: MORPHINE SULFATE (*CRX) 2 MG/ML INJ 1 MG IV PUSH (00:18)
[2023-07-22 02:00] LABS: Cholesterol 193 mg/dL (0-200); HDL Direct 42 mg/dL; Magnesium 1.7 mg/dL (1.6-2.3); Potassium 3.6 mmol/L (3.4-5.0); Triglycerides 153 mg/dL (<150)
[2023-07-22 02:10] LABS: LDL Cholesterol Direct 102 mg/dL
[2023-07-22 02:13] LABS: Troponin I < 0.012 ng/mL (0.000-0.034)
[2023-07-22] MEDS: GABAPENTIN 400 MG CAPSULE 800 MG PO ×3 (04:05→14:17)
--- NOTE | 2023-07-22 08:32 | ECG_ITS ---
Measurements Intervals [place] Rate: 64 P: 72 RI: 139 QRS: 43 QRSD: 86 T: 27 QT: 392 QTc: 407 Interpretive Statements SINUS RHYTHM NONSPECIFIC T-WAVE ABNORMALITY COMPARED TO ECG 07/21/2023 18:14:19 NO SIGNIFICANT CHANGES Electronically Signed On 07-23-2023 11:08:33 OUTPATIENT PSYCHIATRIST by Radha Rouse M.D.
[2023-07-22] MEDS: ASPIRIN 325 MG TABLET PO (08:47)
--- NOTE | 2023-07-22 08:48 | PC.NURSE ---
Patient c/o 12/22 chest pain, Dr. Alvarez notified, aspirin po, chest Xray, troponin level and EKG ordered and done. Patient upset claimed nurses last night knew what was going on with me.
--- NOTE | 2023-07-22 08:59 | PC.NURSE ---
Dr. Alvarez updated on patient condition. Dr. Burns notified of patient consult.
--- NOTE | 2023-07-22 09:20 | PC.NURSE ---
Dr. Rouse at bedside.
--- NOTE | 2023-07-22 09:29 | EST_ITS ---
Patient Info Name: Kayla Means Age: 47 years : 1975 Gender: Female Ht: 63 in Wt: 153 lbs BSA: 1.77 m2 HR: 52 bpm BP: 103 / 65 mmHg Exam Date: 07/22/2023 12:31 PM Exam Location: Echo Lab Patient Status: Inpatient Admit Date: 07/21/2023 Staff Ordering Physician: Radha Rouse MD Attending Provider: Nelly Salas MD Exercise Technologist: Anisha Swann RDCS Exercise Physician: Radha Rouse MD Exam Type: CA stress nadir w NM Study Info A regadenoson stress test was performed. Summary 1. No abnormal ST/T wave changes diagnostic of ischemic with Lexiscan. 2. Please correlate with nuclear medicine images, reported separately. 3. Stress test supervised by and interpreted by Radha Rouse MD. Protocol: Lexiscan Stress ECG Details Stage: REST Duration (min): 1 min : 12 sec HR (bpm): 54 SBP (mmHg): 103 DBP (mmHg): 65 Stage: REST Duration (min): 46 min : 4 sec HR (bpm): 68 SBP (mmHg): 103 DBP (mmHg): 65 Stage: STAGE 1 Duration (min): 0 min : 59 sec HR (bpm): 75 SBP (mmHg): 100 DBP (mmHg): 82 Stage: RECOVERY Duration (min): 1 min : 0 sec HR (bpm): 100 SBP (mmHg): 100 DBP (mmHg): 82 Stage: RECOVERY Duration (min): 2 min : 0 sec HR (bpm): 105 SBP (mmHg): 100 DBP (mmHg): 82 Stage: RECOVERY Duration (min): 3 min : 0 sec HR (bpm): 100 SBP (mmHg): 128 DBP (mmHg): 92 Stage: RECOVERY Duration (min): 4 min : 0 sec HR (bpm): 92 SBP (mmHg): 128 DBP (mmHg): 92 Stage: RECOVERY Duration (min): 4 min : 37 sec HR (bpm): 88 SBP (mmHg): 131 DBP (mmHg): 89 Rest HR: 68 bpm Peak HR: 105 bpm Rest Sys BP: 103 mmHg Peak Sys BP: 131 mmHg Max Pred HR: 175 bpm % Max Pred HR: 60 % Target HR: 149 bpm Max RPP: 13,755 bpm*mmHg Total Time: 1 min : 0 sec Rest Calixto BP: 65 mmHg Peak Calixto BP: 89 mmHg Total Dose: 0.4 mg Resting ECG Sinus rhythm. Nonspecific T-wave abnormality. Stress ECG Sinus rhythm. No abnormal ST/T wave changes diagnostic of ischemic with Lexiscan. Arrhythmias None. Report Signatures
--- NOTE | 2023-07-22 09:29 | PM.CNCAR ---
Assessment and Plan Assessment and plan (1) Chest pain: Qualifiers: Chest pain type: precordial pain Qualified Code(s): R07.2 - Precordial pain Code(s): R07.9 - Chest pain, unspecified Status: Acute Assessment and Plan: Chest pain is atypical. Troponins are negative x 4. EKG without ischemic changes. She does have some reproducible chest wall tenderness that recreates the same type of pain that she has been feeling. Will start her on scheduled Tylenol to help with this. Avoid NSAIDs given her past allergic reaction to NSAIDs. Given her risk factors for heart disease, will obtain Lexiscan (patient unable to walk on treadmill). If Lexiscan is negative, patient can be discharged home. Will arrange follow up in our office. (2) Tobacco dependence: Code(s): F17.200 - Nicotine dependence, unspecified, uncomplicated Status: Acute Assessment and Plan: Counseled on smoking cessation. History of Present Illness History of Present Illness Consult date/time: 07/22/23 09:29 Requesting physician: Elle Alvarez MD Consult reason: chest pain Reason For Visit: Chest Pain Narrative: We are consulted for chest pain. This is a 47 year old female with anxiety, fibromyalgia, asthma, tobacco dependence who presented with chest pain. Patient states that about 6-7 months ago, her primary care provider had referred her to a services clerk at [place] because he was concerned that she needed cardiac testing to evaluate for heart disease, but states that she tried to call and make an appointment but was not able to get through to anyone. She got caught up with life and never heard anything from them so she did not pursue it further. She denies any past cardiac history, has not had any prior cardiac testing. Patient reports that she developed chest pain about 2 days ago that has been persistent. Chest pain is diffuse across her chest and feels like a squeezing type of pain. Pain is intermittent. Patient reports that it did worsen with deep breathing last night. Did get some relief with IV Morphine that was given overnight. Patient presented to [place] [facility]. EKG non-ischemic. Troponins there negative. Patient transferred to [place] for further evaluation. Troponin here negative. EKG without ischemic changes. Patient reports family history of heart disease, father from [place] in his 50s. She has been smoking 1 pack per day for the past 20 years or so. Of note, patient reports an allergy with Meloxicam. She reports that she had an adverse reaction to it in the past and coded a few times. She was told to avoid all NSAIDs, including ASA. Has never taken ASA before. Review of Systems Review of Systems: All systems reviewed & are unremarkable except as noted in HPI and below (HPI) [facility] Past Medical History Medical History Anxiety Asthma Fibromyalgia Hypertension Surgical History Surgical History History of dilation and curettage 2005, 09/2005 History of hysterectomy (~11/11/05) History of laparoscopy (~09/2005) Hx of cholecystectomy (~2014) Family History Family History Mother Hypertension Grandparent Acute myocardial infarction maternal grandfather maternal grandmother Family history of stroke maternal grandmother Social History Social History Smoking packs per day: 1 Smoking cigarettes per day: 20.0 Years smoked: 20 Smoking pack-years: 20.00 Smoking status: Current every day smoker Tobacco type: cigarettes Alcohol intake: never Substance use: current Substance use type: marijuana Do You Feel Safe in your Home?: Yes Lack of Transportation: No Lack of Food: Never True Current Housing: I Have Housing Concerned About Future Housing: No Difficulty Pay
[2023-07-22 09:31] LABS: Troponin I < 0.012 ng/mL (0.000-0.034)
[2023-07-22] MEDS: ACETAMINOPHEN/CODEINE (*CRX) 300/30 MG TABLET 1 TAB PO ×2 (09:38→14:20)
[2023-07-22] MEDS: VENLAFAXINE HCL XR 75 MG CAP.ER.24H PO (09:41)
[2023-07-22] MEDS: CYCLOBENZAPRINE HCL 10 MG TABLET PO ×2 (09:45→14:17)
[2023-07-22] MEDS: diazePAM (*CRX) 5 MG TABLET 10 MG PO (09:47)
[2023-07-22] MEDS: ACETAMINOPHEN 325 MG TABLET 650 MG PO (10:54)
[2023-07-22] MEDS: NICOTINE (*PBKC) 21 MG PATCH 1 PATCH TRANSDERM (10:54)
--- NOTE | 2023-07-22 10:55 | PC.NURSE ---
Patient resting quietly, no complaints of chest pain, visitor at bedside.
--- NOTE | 2023-07-22 11:46 | PC.NURSE ---
Off floor to stress lab.
[2023-07-22] MEDS: ONDANSETRON INJ 4 MG/2 ML VIAL IV PUSH (14:16)
--- NOTE | 2023-07-22 15:29 | PM.DS ---
DS: Admitting Diagnosis Discharge Date 07/22/23 Admitting Diagnosis Chest pain DS: Discharge Diagnosis Discharge Diagnosis (1) Chest pain: Qualifiers: Chest pain type: precordial pain Qualified Code(s): R07.2 - Precordial pain Code(s): R07.9 - Chest pain, unspecified Status: Acute DS: Summary Hospital Course Hospital Course: This is a 47-year-old female with past medical history significant for fibromyalgia, tobacco dependence, generalized anxiety disorder, asthma.? Patient presents to the emergency room due to retrosternal a chest pain with radiation to the precordial area and arm on an of lasting throughout the day patient took her usual medications with no relief.? Had some nausea associated with it, it is like pressure rated at 7/10 in intensity.? Patient has been in her usual state of health denies any fevers, rigors, chills, cough, sputum production.? Preliminary workup has been essentially nonrevealing. Chest pain is reproducible with palpation, stress test negative and no ischemic changes. Cardiology was consulted and noted that if stress test is negative patient can discharge and they will follow up outpatient. Continue PRN tylenol Continue other home meds, f/u with PCP in 3-5 days, f/u with cards as tolerated Assessment and plan (1) Chest pain: ?Qualifiers: ?Chest pain type:?precordial pain? Qualified Code(s):?R07.2 - Precordial pain ?Code(s): R07.9 - Chest pain, unspecified ?Status:?Inactive ?Assessment and Plan: Admit to IMU Serial troponins Lexiscan stress test in the morning (2) Fibromyalgia: ?Code(s): M79.7 - Fibromyalgia ?Status:?Acute ?Assessment and Plan: Resume home med (3) Hypertension: ?Code(s): I10 - Essential (primary) hypertension ?Status:?Acute ?Assessment and Plan: Resume home meds (4) Asthma: ?Code(s): J45.909 - Unspecified asthma, uncomplicated ?Status:?Acute ?Assessment and Plan: Not actively wheezing (5) Tobacco dependence: ?Code(s): F17.200 - Nicotine dependence, unspecified, uncomplicated ?Status:?Acute Time Spent with Patient Time attestation: Total time spent providing and/or coordinating discharge services: DS: Data Data Completed and Pending Labs on day of discharge: Labs from last 24 hours 07/22/23 07/22/23 08:54 01:41 Potassium 3.6 Magnesium 1.7 Troponin I < 0.012 < 0.012 Triglycerides 153 H Cholesterol 193 LDL Cholesterol Direct 102 HDL Direct 42 Discharge Plan Discharge Attending physician on discharge: Elle Alvarez Consulting providers: Carina Burns Discharging Clinician: Elle Alvarez Anticipated Discharge Date/Time: 07/22/23 15:19 Patient Disposition: Home, Self-Care Activity: as tolerated Diet: as tolerated Patient Instructions: Antibiotic Form, How to Stop Smoking (DC) Stand Alone Forms: General Discharge Information Follow-up/Referrals: Arlene,LUCY Garcia [Primary Care Provider] - (f/u with PCP in 3-5 days ) Carina Burns MD [Physician] - (f/u as instructed ) Discharge Medications: Continued cyclobenzaprine 10 mg tablet 10 mg PO TID gabapentin 600 mg tablet 800 mg PO TID venlafaxine 150 mg capsule,extended release 24hr 75 mg PO DAILY albuterol sulfate 90 mcg/actuation HFA aerosol inhaler 2 puff INHALATION PRN atenolol 50 mg tablet 50 mg PO DAILY acetaminophen-codeine 300-30 mg tablet 1 - 2 tablet PO TID PRN (Reason: Pain (Scale Score 1-3)) trazodone 100 mg tablet 200 mg PO HS diazepam 5 mg tablet 10 mg PO TID PRN (Reason: Anxiety) Date of admission: 07/21/23 23:17 Primary Care Provider: ArleneJesu Admitting Provider: Nelly Salas V. Attending physician on admission: Nelly Salas V. Condition: Improved
== END 2023-07-22 16:12 | disposition home or self-care (01) ==
PROVIDERS: Admitting Provider Internal Medicine; PCP Physician Assistant; Visit Provider Internal Medicine
DX: R07.2 Precordial pain (principal); M79.7 Fibromyalgia; I10 Essential (primary) hypertension; J45.909 Unspecified asthma, uncomplicated; F41.9 Anxiety disorder, unspecified; F17.210 Nicotine dependence, cigarettes, uncomplicated; F12.90 Cannabis use, unspecified, uncomplicated; Z79.51 Long term (current) use of inhaled steroids; Z79.891 Long term (current) use of opiate analgesic; Z79.899 Other long term (current) drug therapy; Z82.49 Family history of ischemic heart disease and other diseases of the circulatory system
CPT/HCPCS: 36415; 71045; 78452; 80061; 83735; 84132; 84484; 93005; 93017; 96374; 96375; A9270; A9502; G0378; G0379; J2270; J2405; J2785

== ENCOUNTER 2023-09-21 11:10 | Emergency (ER) | payer OTHER, SELFPAY ==
--- NOTE | ~2023-09-21 | XR_ITS ---
EXAMINATION: XR chest 1V portable DATE: 09/21/2023 11:39 INDICATION: Shortness of breath. TECHNIQUE: A single frontal view of the chest was obtained. COMPARISON: Chest single view 07/22/2023 FINDINGS: There is no pneumonia, pleural effusion, or pneumothorax. The heart size is normal. IMPRESSION: 1. No acute cardiopulmonary disease. Reviewed, dictated and finalized at location A.
[2023-09-21 11:16] VITALS: BP 127/89; PULSE 81; RESP 19; TEMP 36.6; O2SAT 98
--- NOTE | 2023-09-21 11:18 | ED.SOB ---
HPI - SOB/Dyspnea General Chief Complaint: Upper Respiratory Infection Stated Complaint: SOB/Cough/chest pain Time Seen by Provider: 09/21/23 11:15 Source: patient Mode of arrival: ambulatory Limitations: no limitations History of Present Illness HPI Narrative: patient is a 47-year-old female with a cough and congestion for the past week. Patient smokes daily. MD elicited complaint: shortness of breath, cough, pain with inspiration, chest pain and asthma attack Pertinent past history: COPD, asthma and pneumonia Onset (ago): week(s) (1) Context: occurred during exertion Timing: constant Severity: moderate Exacerbating factors: exertion, movement, coughing, inspiration, talking, allergies, cold air, smoke and deep breaths Relieving factors: rest and bronchodilators Known history of: COPD and asthma Associated symptoms: pain with inspiration Treatment prior to arrival: none Related Data Home oxygen amount: none Home Medications Medication Instructions Recorded Confirmed albuterol sulfate 90 mcg/actuation 2 puff inhalation PRN 12/27/20 09/21/23 aerosol inhaler cyclobenzaprine 10 mg tablet 10 mg PO TID 12/27/20 09/21/23 gabapentin 600 mg tablet 800 mg PO TID 12/27/20 09/21/23 venlafaxine 150 mg 75 mg PO DAILY 12/27/20 09/21/23 capsule,extended release 24 hr acetaminophen 300 mg-codeine 30 mg 1 - 2 tablet PO TID PRN Pain 07/21/23 09/21/23 tablet (Scale Score 1-3) diazepam 5 mg tablet 10 mg PO TID PRN Anxiety 07/21/23 09/21/23 trazodone 100 mg tablet 200 mg PO HS 07/21/23 09/21/23 Allergies Allergy/AdvReac Type Severity Reaction Status Date / Time meloxicam Allergy Severe Anaphylactic Verified 09/21/23 11:24 Shock Iodinated Contrast Media Allergy Intermediate Rash Verified 09/21/23 11:24 Review of Systems Review of Systems: All systems reviewed & are unremarkable except as noted in HPI and below Constitutional: Constitutional: Reports no additional constitutional complaints Eyes: Eyes: Reports no additional eye complaints ENT: Reports system reviewed and no additional complaints, except as documented Cardiovascular: Cardiovascular: Reports no additional cardiovascular complaints Respiratory: Respiratory: Reports no additional respiratory complaints Gastrointestinal: Gastrointestinal: Reports no additional gastrointestinal complaints Genitourinary: Genitourinary: Reports no additional female genitourinary complaints Musculoskeletal: Musculoskeletal: Reports no additional musculoskeletal complaints Integumentary/Breasts: Skin/Breast: Reports system reviewed and no additional complaints, except as docu Neurologic: Reports system reviewed and no additional complaints, except as documented Psychiatric: Psychiatric: Reports no additional psychiatric complaints Endocrine: Endocrine: Reports no additional endocrine complaints Hematologic/Lymphatic: Hematologic/Lymphatic: Reports no additional hematologic/lymphatic complaints Allergic/Immunologic: Allergic/Immunologic: Reports no additional allergic/immunologic complaints PMFSH Past Medical History Medical History Anxiety Asthma Fibromyalgia Hypertension Surgical History Surgical History History of dilation and curettage 2005, 09/2005 History of hysterectomy (~11/11/05) History of laparoscopy (~09/2005) Hx of cholecystectomy (~2014) Family History Family History Mother Hypertension Grandparent Acute myocardial infarction maternal grandfather maternal grandmother Family history of stroke maternal grandmother Social History Social History Smoking packs per day: 1 Smoking cigarettes per day: 20.0 Years smoked: 20 Smoking pack-years: 20.00 Smoking status: Current every day smoker Tobacco typ
[2023-09-21 11:23] VITALS: O2SAT 98
--- NOTE | 2023-09-21 11:27 | ECG_ITS ---
Measurements Intervals [place] Rate: 75 P: -13 [place]: 142 QRS: -30 QRSD: 83 T: 23 QT: 396 AVG RR: 791 QTc: 425 QTCB: 445 QTCF: 428 Interpretive Statements SINUS RHYTHM POSSIBLE LEFT ATRIA ENLARGEMENT [-0.1mV P WAVE ON V1/V2] CANNOT RULE OUT SEPTAL MYOCARDIAL INFARCTION, OF INDETERMINATE AGE [40+ ms Q WAVE IN V1/V2] INFERIOR MYOCARDIAL INFARCTION, OLD [40+ ms Q WAVE AND/OR ST/T ABNORMALITY IN II/aVF] ABNORMAL ECG SEE SCANNED COPY FOR SIGNATURE MTDD
[2023-09-21 11:34] LABS: Basophils Absolute Auto 0.05 K/mm3 (0.00-0.10); Basophils Percent Auto 0.6 % (0.0-1.0); Eosinophils Absolute Auto 0.19 K/mm3 (0.02-0.50); Eosinophils Percent Auto 2.3 % (1.0-6.0); Hematocrit 41.7 % (35.0-49.0); Hemoglobin 14.5 g/dL (12.0-15.0); Immature Granulocyte Absolute 0.04 K/mm3 (0.00-0.00); Immature Granulocyte Percent A 0.5 % (0.0-0.0); Lymphocytes Absolute Auto 2.28 K/mm3 (1.10-4.50); Mean Corpuscular HGB Conc 34.8 g/dL (32-36); Mean Corpuscular Hemoglobin 31.1 pg (27.0-31.0); Mean Corpuscular Volume 89.5 fL (78.0-102.0); Monocytes Absolute Auto 0.36 K/mm3 (0.10-0.90); Monocytes Percent Auto 4.3 % (2.0-11.0); Neutrophils Absolute Auto 5.52 K/mm3 (1.70-7.20); Neutrophils Percent Auto 65.3 % (50.0-70.0); Platelet Count Result 327 K/mm3 (150-420); Red Blood Count 4.66 M/mm3 (4.20-5.40); Red Cell Distribution Width 13.6 % (11.6-14.4); White Blood Count 8.4 K/mm3 (4.8-10.8)
[2023-09-21 11:47] LABS: D Dimer 0.49 mg/L (0.19-0.50)
[2023-09-21 11:53] LABS: Alanine Aminotransferase 16 U/L (14-59); Albumin Level 3.4 g/dL (3.4-5.0); Alkaline Phosphatase 79 U/L (46-116); Anion Gap 10 mmol/L (4-12); Aspartate Amino Transferase 13 U/L (15-37); Bilirubin,Total 0.4 mg/dL (0.00-1.00); Blood Urea Nitrogen 3 mg/dL (7-18); Calcium 8.4 mg/dL (8.5-10.1); Carbon Dioxide 28 mmol/L (21-32); Chloride 103 mmol/L (98-108); Estimated Glomerular Filt Rate > 60; Glucose 83 mg/dL (70-99); Osmolality Calculated 287 mOsm/kg (285-295); Sodium 141 mmol/L (136-145); Troponin I 7.6 ng/L (0.00-60.4)
[2023-09-21 11:56] LABS: Influenza A QL RT-PCR Negative (Negative); Influenza B QL RT-PCR Negative (Negative); RSV RNA, RT-PCR Negative (Negative); SARS-CoV-2 RNA PCR Negative (Negative)
[2023-09-21 12:54] VITALS: PULSE 70; RESP 20; O2SAT 98
[2023-09-21] MEDS: IPRATROPIUM 0.5 MG/ALBUTEROL SULFATE 2.5 MG AMPUL.NEB 3 ML INHALATION (12:59)
[2023-09-21] MEDS: methylPREDNISolone SOD SUCC 125 MG VIAL IM (13:02)
[2023-09-21 13:03] VITALS: PULSE 70; RESP 20; O2SAT 99
[2023-09-21] MEDS: AMOXICILLIN/CLAVULANATE K 875-125 MG TAB 1 TABLET PO (13:03)
[2023-09-21] MEDS: POTASSIUM CHLORIDE 20 MEQ ER TABLET 40 MEQ (13:11)
[2023-09-21 13:15] VITALS: BP 129/94; PULSE 71; RESP 20; TEMP 36.8; O2SAT 95
== END 2023-09-21 13:26 | disposition home or self-care (01) ==
PROVIDERS: Emergency Provider Emergency Medicine; PCP Physician Assistant
DX: J45.909 Unspecified asthma, uncomplicated (principal); I10 Essential (primary) hypertension; F41.9 Anxiety disorder, unspecified; F17.210 Nicotine dependence, cigarettes, uncomplicated; Z20.822 Contact with and (suspected) exposure to COVID-19
CPT/HCPCS: 36415; 71045; 80053; 84484; 85025; 85380; 87637; 93005; 94640; 96372; 99284; A9270; J2919

== ENCOUNTER 2023-12-15 10:24 | Emergency (ER) | payer OTHER, SELFPAY ==
--- NOTE | ~2023-12-15 | XR_ITS ---
EXAMINATION: XR thoracic spine 3V DATE: 12/15/2023 11:21 INDICATION: Back pain. TECHNIQUE: 3 views of thoracic spine were obtained. COMPARISON: None. FINDINGS: There is 3 degrees dextrocurvature of thoracic spine. Vertebral body heights are normal. Th ere are endplate osteophytes at many levels. There is mildly decreased disc height in lower thoracic spine. IMPRESSION: 1. Mild thoracic spondylosis. Reviewed, dictated and finalized at location A.
--- NOTE | ~2023-12-15 | XR_ITS ---
EXAMINATION: XR cervical spine 4-5V DATE: 12/15/2023 11:21 INDICATION: Back pain. TECHNIQUE: 5 views of the cervical spine were obtained. COMPARISON: None. FINDINGS: Bone alignment is normal. Vertebral body heights are normal. There is mildly decreased disc height at C6-C7. There is multilevel [id number] facet joint osteoarthritis. No neural foramina l stenosis or central canal stenosis. No prevertebral soft tissue swelling. IMPRESSION: 1. Mild cervical spondylosis. Reviewed, dictated and finalized at location A.
[2023-12-15 10:28] VITALS: BP 148/102; PULSE 87; RESP 16; TEMP 36.9; O2SAT 98
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
--- NOTE | 2023-12-15 11:17 | PC.NURSE ---
Patient back in room from radiology
[2023-12-15 11:49] VITALS: BP 131/94; PULSE 69; RESP 16; TEMP 36.9; O2SAT 99
== END 2023-12-15 11:49 | disposition home or self-care (01) ==
PROVIDERS: Emergency Provider Emergency Medicine; PCP Physician Assistant
DX: S23.9XXA Sprain of unspecified parts of thorax, initial encounter (principal); M54.6 Pain in thoracic spine; I10 Essential (primary) hypertension; F17.210 Nicotine dependence, cigarettes, uncomplicated; Z79.899 Other long term (current) drug therapy; X58.XXXA Exposure to other specified factors, initial encounter
CPT/HCPCS: 72050; 72072; 99283

== ENCOUNTER 2024-01-10 17:17 | Emergency (ER) | payer OTHER, SELFPAY ==
[2024-01-10] VITALS (40 sets, daily range): BP systolic 120–177; BP diastolic 76–104; PULSE 48–66; RESP 12–21; TEMP 36.3; O2SAT 93–100
--- NOTE | ~2024-01-10 | XR_ITS ---
XR chest 1V portable Ordering provider: Benito Brown MD History: 48 years Female with . Chest pain/sob/cough x1 day . Comparison: September 21, 2023 FINDINGS: MEDIASTINUM: The cardiac silhouette is not enlarged. LUNGS: No infiltrates, effusions or pneumothorax. OTHER: No free air under the diaphragm. IMPRESSION: No acute cardiopulmonary pathology. Reviewed, dictated and finalized at location A.
--- NOTE | 2024-01-10 17:20 | ECG_ITS ---
Test Date: 2024-01-10 17:25:45 Measurements Intervals [place] Rate: 60 P: 63 [place]: 144 QRS: 37 QRSD: 85 T: 56 QT: 400 QTc: 400 Interpretive Statements SINUS RHYTHM BASELINE ARTIFACT- I, II, III, AVR, AVL, AVF, V1-V6 NORMAL ECG No previous ECG available for comparison Electronically Signed On 01-10-2024 21:09:10 CDT by Kane Guy D.O.
[2024-01-10] MEDS: NITROGLYCERIN SL 0.4 MG TABLET SUBLINGUAL (17:39)
--- NOTE | 2024-01-10 17:39 | ED.CHESTPAIN ---
HPI - Chest Pain General Chief Complaint: Chest Pain Stated Complaint: chest pain Time Seen by Provider: 01/10/24 17:28 Source: patient Mode of arrival: ambulatory Limitations: no limitations History of Present Illness HPI narrative: Patient is a 48-year-old female with chest pain since yesterday. She has been having on and off chest pain not related to any event. She has no history of CAD. She has hypertension however her pressure has been high all day. She is having panic feeling as well. MD complaint: chest pain Pertinent past history: other ( Hypertension) Onset (ago): day(s) (2) Timing of current episode: episodic Prior episodes: No Onset: during rest and during exertion Pain location: substernal and left chest Pain radiation: left arm and jaw/teeth Severity: moderate Pain scale (0-10): 5 Quality: tightness, heaviness and sharp Relieving factors: nothing Exacerbating factors: nothing Associated symptoms: sense of impending doom Treatment prior to arrival: none Risk Factors Coronary artery disease risk factors: none Thoracic aortic dissection risk factors: none Related Data On Oral Contraceptives: No Home Medications Medication Instructions Recorded Confirmed albuterol sulfate 90 mcg/actuation 2 puff inhalation PRN 12/27/20 01/10/24 aerosol inhaler cyclobenzaprine 10 mg tablet 10 mg PO TID 12/27/20 01/10/24 gabapentin 600 mg tablet 800 mg PO TID 12/27/20 01/10/24 venlafaxine 150 mg 75 mg PO DAILY 12/27/20 01/10/24 capsule,extended release 24 hr acetaminophen 300 mg-codeine 30 mg 1 - 2 tablet PO TID PRN Pain 07/21/23 01/10/24 tablet (Scale Score 1-3) diazepam 5 mg tablet 10 mg PO TID PRN Anxiety 07/21/23 01/10/24 trazodone 100 mg tablet 200 mg PO HS 07/21/23 01/10/24 atenolol 50 mg tablet 50 mg PO DAILY 01/10/24 01/10/24 Allergies Allergy/AdvReac Type Severity Reaction Status Date / Time meloxicam Allergy Severe Anaphylactic Verified 09/21/23 11:24 Shock Iodinated Contrast Media Allergy Intermediate Rash Verified 09/21/23 11:24 Review of Systems Review of Systems: All systems reviewed & are unremarkable except as noted in HPI and below Constitutional: Constitutional: Reports no additional constitutional complaints Eyes: Eyes: Reports no additional eye complaints ENT: Reports system reviewed and no additional complaints, except as documented Cardiovascular: Cardiovascular: Reports no additional cardiovascular complaints Respiratory: Respiratory: Reports no additional respiratory complaints Gastrointestinal: Gastrointestinal: Reports no additional gastrointestinal complaints Genitourinary: Genitourinary: Reports no additional female genitourinary complaints Musculoskeletal: Musculoskeletal: Reports no additional musculoskeletal complaints Integumentary/Breasts: Skin/Breast: Reports system reviewed and no additional complaints, except as docu Neurologic: Reports system reviewed and no additional complaints, except as documented Psychiatric: Psychiatric: Reports no additional psychiatric complaints Endocrine: Endocrine: Reports no additional endocrine complaints Hematologic/Lymphatic: Hematologic/Lymphatic: Reports no additional hematologic/lymphatic complaints Allergic/Immunologic: Allergic/Immunologic: Reports no additional allergic/immunologic complaints PMFSH Past Medical History Medical History Anxiety Asthma Fibromyalgia Hypertension Surgical History Surgical History History of dilation and curettage 2005, 09/2005 History of hysterectomy (~11/11/05) History of laparoscopy (~09/2005) Hx of cholecystectomy (~2014) Family History Family History Mother Hypertension Grandparent Acute myocardial infarction maternal grandfather maternal grandmother Family history of stroke maternal g
[2024-01-10 17:55] LABS: Basophils Absolute Auto 0.04 K/mm3 (0.00-0.10); Basophils Percent Auto 0.5 % (0.0-1.0); Eosinophils Absolute Auto 0.15 K/mm3 (0.02-0.50); Eosinophils Percent Auto 1.8 % (1.0-6.0); Hematocrit 37.8 % (35.0-49.0); Hemoglobin 13.6 g/dL (12.0-15.0); Immature Granulocyte Absolute 0.03 K/mm3 (0.00-0.00); Immature Granulocyte Percent A 0.4 % (0.0-0.0); Lymphocytes Absolute Auto 1.81 K/mm3 (1.10-4.50); Lymphocytes Percent Auto 21.7 % (18.0-42.0); Mean Corpuscular Hemoglobin 31.9 pg (27.0-31.0); Mean Corpuscular Volume 88.7 fL (78.0-102.0); Mean Platelet Volume 9.8 fl (9.2-11.8); Monocytes Absolute Auto 0.48 K/mm3 (0.10-0.90); Monocytes Percent Auto 5.8 % (2.0-11.0); Neutrophils Absolute Auto 5.82 K/mm3 (1.70-7.20); Neutrophils Percent Auto 69.8 % (50.0-70.0); Platelet Count Result 270 K/mm3 (150-420); Red Blood Count 4.26 M/mm3 (4.20-5.40); Red Cell Distribution Width 13.2 % (11.6-14.4); White Blood Count 8.3 K/mm3 (4.8-10.8)
[2024-01-10] MEDS: MORPHINE SULFATE (*CRX) 2 MG/ML INJ IV PUSH (17:56)
[2024-01-10] MEDS: ONDANSETRON INJ 4 MG/2 ML VIAL IV PUSH (18:06)
[2024-01-10 18:18] LABS: Alanine Aminotransferase 25 U/L (14-59); Albumin Level 3.4 g/dL (3.4-5.0); Alkaline Phosphatase 56 U/L (46-116); Anion Gap 13 mmol/L (4-12); Aspartate Amino Transferase 18 U/L (15-37); Bilirubin,Total 0.4 mg/dL (0.00-1.00); Blood Urea Nitrogen 8 mg/dL (7-18); Calcium 8.4 mg/dL (8.5-10.1); Carbon Dioxide 23 mmol/L (21-32); Chloride 101 mmol/L (98-108); Estimated CRCL calculation 72 ml/min; Estimated Glomerular Filt Rate > 60; Glucose 100 mg/dL (70-99); Lipase 41 U/L (16-77); NT Pro B Type Natriuretic Pept 263 pg/mL (0-125); Osmolality Calculated 282 mOsm/kg (285-295); Potassium 2.7 mmol/L (3.5-5.1); Sodium 137 mmol/L (136-145); Total Protein 6.7 g/dL (6.4-8.2); Troponin I 6.4 ng/L (0.00-60.4)
[2024-01-10] MEDS: POTASSIUM CHLORIDE 20 MEQ ER TABLET 40 MEQ PO (18:27)
[2024-01-10 18:45] LABS: Magnesium 1.2 mg/dL (1.8-2.4)
[2024-01-10 18:46] LABS: D Dimer 0.19 mg/L (0.19-0.50); INR 1.1; Partial Thromboplastin Time 28.5 Sec (23.9-30.70); Prothrombin Time 11.5 Seconds (9.50-12.1)
[2024-01-10 18:53] LABS: Bilirubin Urine Negative (Negative); Blood Urine Trace-intact (Negative); Color Urine Light Yellow (Yellow); Glucose Urine UA Negative (Negative); Ketones Urine Trace (Negative); Leukocyte Esterase Ur Negative LEU/UL (Negative); Nitrate Urine Negative (Negative); Protein Urine Negative (Negative); Urobilinogen Urine 0.2 mg/dL (0.2-1.0)
--- NOTE | 2024-01-10 18:57 | PC.NURSE ---
report to griffin mims
[2024-01-10 19:19] LABS: Add Urine Microscopic? YES; Amorphous Sediment Urine Moderate; Appearance Urine Sl Cloudy (Clear); Bacteria Urine 1+ /hpf; Mucus Urine Heavy /lpf; RBC Urine 0-2 /hpf (0-2); Squamous Epithelial Cell Urine Moderate /hpf (Few)
[2024-01-10] MEDS: MAGNESIUM SULF 2 GM/WATER 50ML 2 GM/50 ML BAG IVPB (19:40)
[2024-01-10] MEDS: MORPHINE SULFATE (*CRX) 4 MG/ML INJ IV PUSH (19:46)
--- NOTE | 2024-01-10 20:14 | ECG_ITS ---
Test Date: 2024-01-10 20:20:33 Measurements Intervals [place] Rate: 51 P: 72 [place]: 144 QRS: 34 QRSD: 88 T: 8 QT: 443 QTc: 412 Interpretive Statements SINUS BRADYCARDIA BORDERLINE ST-T WAVE ABNORMALITY- INF/LAT LEADS BORDERLINE ECG Compared to ECG 01/10/2024 17:25:45 HEART RATE HAS DECREASED Electronically Signed On 01-11-2024 06:18:17 CDT by Kane Guy D.O.
[2024-01-10 20:19] LABS: Troponin I 7.9 ng/L (0.00-60.4)
[2024-01-10] MEDS: LORazepam INJ (*CRX) 2 MG/ML VIAL 1 MG IV PUSH (20:37)
== END 2024-01-10 21:20 | disposition home or self-care (01) ==
PROVIDERS: Emergency Provider Emergency Medicine; PCP Physician Assistant
DX: R07.89 Other chest pain (principal); F41.9 Anxiety disorder, unspecified; I10 Essential (primary) hypertension; F17.210 Nicotine dependence, cigarettes, uncomplicated; Z79.899 Other long term (current) drug therapy
CPT/HCPCS: 36415; 71045; 80053; 81001; 83690; 83735; 83880; 84484; 85025; 85380; 85610; 85730; 93005; 96365; 96375; 96376; 99284; A9270; J2060; J2270; J2405; J3475

== ENCOUNTER 2024-04-18 14:24 | Emergency (ER) | payer OTHER, SELFPAY ==
--- NOTE | ~2024-04-18 | CT_ITS ---
EXAMINATION: CT abdomen pelvis wo con DATE: 04/18/2024 15:02 INDICATION: Right lower quadrant abdominal pain. TECHNIQUE: Computed tomography (CT) of the abdomen and pelvis was performed without intravenous contr ast. Automated exposure control and iterative reconstruction technique were employed. The dose-length product was 264.00 mGy-cm. COMPARISON: CT abdomen pelvis 05/03/2018 FINDINGS: The visualized portions of the lung bases demonstrate mild atelectasis. No pleural effusion . The heart size is normal. No pericardial effusion. The liver, gallbladder, pancreas, adrenal glands , and kidneys are normal. There are changes of cholecystectomy. There are no dilated loops of bowel. The appendix is not visualized. There are no pathologically enlarged lymph nodes. There is no free in traperitoneal fluid. There is mild thoracic and lumbar spondylosis. There is mild chronic anterior we dging of multiple lower thoracic vertebral bodies. IMPRESSION: 1. No etiology for the patient's symptoms. Reviewed, dictated and finalized at location A. S COACH
[2024-04-18 14:25] VITALS: BP 117/93; PULSE 91; RESP 18; TEMP 36.4; O2SAT 98
--- NOTE | 2024-04-18 14:43 | ED_ITS ---
HPI - Abdominal Pain General Chief Complaint: Abdominal Pain Stated Complaint: rt.side ab pain Source: patient and family Mode of arrival: ambulatory Limitations: no limitations History of Present Illness HPI narrative: 48 YEARS OLD WHITE FEMALE CAME TO THE EMERGENCY ROOM BY PRIVATE CAR COMPLAINING OF HER RIGHT LOWER QUADRANT DULL ACHING PAIN WITHOUT RADIATION AND BLACK STOOLS FOR THE LAST 2 WEEKS. PATIENT IS TELLING ME THAT SHE HAVE 3-4 BOWEL MOVEMENT A DAY FOR THE LAST 2 WEEKS. WAS SEEN BY HER FAMILY PHYSICIAN 10 DAYS AGO RECEIVED SOME ANTI DIARRHEA MEDICATION WITHOUT IMPROVEMENT. HISTORY OF HYPERTENSION, ASTHMA, COPD, CHOLECYSTECTOMY AND HYSTERECTOMY, PATIENT DOES NOT TAKE ANTI- PLATELET OR ANTICOAGULANT MEDICATION DENIES ANY VOMITING Related Data Home Medications Medication Instructions Recorded Confirmed albuterol sulfate 90 mcg/actuation 2 puff inhalation PRN 12/27/20 04/18/24 aerosol inhaler cyclobenzaprine 10 mg tablet 10 mg PO TID 12/27/20 04/18/24 gabapentin 600 mg tablet 800 mg PO TID 12/27/20 04/18/24 acetaminophen 300 mg-codeine 30 mg 1 - 2 tablet PO TID PRN Pain 07/21/23 04/18/24 tablet (Scale Score 1-3) trazodone 100 mg tablet 200 mg PO HS 07/21/23 04/18/24 atenolol 50 mg tablet 50 mg PO DAILY 01/10/24 04/18/24 lorazepam 0.5 mg tablet (Ativan) 2 mg PO BID PRN agitation 04/18/24 04/18/24 potassium chloride 20 mEq 20 meq PO BID 04/18/24 04/18/24 tablet,extended release(part/cryst) Allergies Allergy/AdvReac Type Severity Reaction Status Date / Time meloxicam Allergy Severe Anaphylactic Verified 04/18/24 14:41 Shock Iodinated Contrast Media Allergy Intermediate Rash Verified 04/18/24 14:41 Review of Systems Review of Systems: All systems reviewed & are unremarkable except as noted in HPI and below PMFSH Past Medical History Medical History Anxiety Asthma Fibromyalgia Hypertension Surgical History Surgical History History of dilation and curettage 2005, 09/2005 History of hysterectomy (~11/11/05) History of laparoscopy (~09/2005) Hx of cholecystectomy (~2014) Family History Family History Mother Hypertension Grandparent Acute myocardial infarction maternal grandfather maternal grandmother Family history of stroke maternal grandmother Social History Social History Smoking packs per day: 1 Smoking cigarettes per day: 20.0 Years smoked: 20 Smoking pack-years: 20.00 Smoking status: Current every day smoker Tobacco type: cigarettes Alcohol intake: never Substance use: current Substance use type: marijuana Do You Feel Safe in your Home?: Yes Lack of Transportation: No Lack of Food: Never True Current Housing: I Have Housing Concerned About Future Housing: No Difficulty Paying Gas/Electric Bills: No Difficulty Paying for Meds: No Currently Unemployed: No Education: High School Diploma/GED Difficulty w/ Childcare or Family Care: No Living arrangements: with family Occupation/Education: occupation Gender identity (if verbalized by the patient): Female Sexual Orientation (if Verbalized by the Patient): Straight or Heterosexual Spiritual care concerns: No Exam Narrative: GENERAL APPEARANCE: WELL-DEVELOPED, WELL-NOURISHED SKIN: NORMAL COLOR HEAD: NORMOCEPHALIC, NONTRAUMATIC EYES: CLEAR CONJUNCTIVA ENT: OROPHARYNX NORMAL, EARS NORMAL, NOSE NORMAL NECK: SUPPLE, NONTENDER CHEST AND RESPIRATORY: AIRWAY PATENT, NO RESPIRATORY DISTRESS, NO ACCESSORY MUSC LE USE HEART: REGULAR RATE/RHYTHM ABDOMEN: SOFT, TENDERNESS RIGHT LOWER QUADRANT,, NO ORGANOMEGALY, QUIET BOWEL SOUNDS, RECTAL EXAM SHOWED NO STOOL IN THE RECTAL POUCH NO HEMORRHOIDS NO MASS VASCULAR: NORMAL PERIPHERAL PULSES, NORMAL CAPILLARY REFILL. MUSCULOSKELETAL: NORMAL RANGE OF MOTION, NONTENDER BACK NEUROLOGIC: ALERT AND ORIENTED ?3, TYPEWRITER ALIGNER IS NORMAL TESTED, NO GROSS MOTOR DEFICIT Course Vital Signs Vital signs: Vital Signs Temperature 36.4 C 04/18/24 14:25 Pulse Rate 91 04/18/24 14:25 Respiratory Rate 18 04/18/24 14:25 Blood Pressure 117/93 H 04/18/24 14:25 Pulse Oximetry 98 04/18/24 14:25 Oxygen Delivery Room Air 04/18/24 14:25 Temperature 36.4 C 04/18/24 14:25 Pulse Rate 91 04/18/24 14:25 Respiratory Rate 18 04/18/24 14:25 Blood Pressure 117/93 H 04/18/24 14:25 Pulse Oximetry 98 04/18/24 14:25 Oxygen Delivery Room Air 04/18/24 14:25 MDM - Abdominal Pain MDM Narrative Medical decision making narrative: PATIENT PRESENTS WITH PAIN RIGHT LOWER QUADRANT AND BLACK DIARRHEA FOR THE LAST 2 WEEKS VITAL SIGNS ARE STABLE PHYSICAL EXAMINATION SHOWING TENDERNESS RIGHT LOWER QUADRANT AND RECTAL EXAM SHOWING NO ABNORMALITIES, DIFFERENTIAL DIAGNOSIS INCLUDE DEHYDRATION, ELECTROLYTE IMBALANCE, GI BLEED, IBS BLOOD WORKUP TODAY SHOWED NORMAL WBC 8.7, NORMAL H&H, POTASSIUM 2.9. PATIENT CURRENTLY ON POTASSIUM 20 MEQ TWICE A DAY, PATIENT BEEN USING ONCE A DAY INSTEAD OF TWICE A DAY. 40 MEQ OF POTASSIUM P.O. GIVEN TO THE PATIENT PRIOR TO DISCHARGE. GUAIAC STOOL IS NEGATIVE CT ABDOMEN AND PELVIS WITHOUT CONTRAST, PATIENT IS ALLERGIC TO CONTRAST, SHOWED NO ACUTE ABNORMALITIES. Differential Diagnosis Differential diagnosis: Likely other ( ABOVE) Medical Records Attestation: I reviewed the patient's medical records. Lab Data Attestation: I reviewed the patient's lab results. 04/18/24 15:05 04/18/24 15:05 Labs: Lab Results 04/18/24 04/18/24 Range/Units 15:05 15:55 WBC 8.7 (4.8-10.8) K/mm3 RBC 4.02 L (4.20-5.40) M/mm3 Hgb 13.0 (12.0-15.0) g/dL Hct 37.7 (35.0-49.0) % MCV 93.8 (78.0-102.0) fL MCH 32.3 H (27.0-31.0) pg MCHC 34.5 (32-36) g/dL RDW 13.1 (11.6-14.4) % Plt Count 228 (150-420) K/mm3 MPV 9.8 (9.2-11.8) fl Immature Gran % (Auto) 0.5 H (0.0-0.0) % Neut % (Auto) 70.3 H (50.0-70.0) % Lymph % (Auto) 23.2 (18.0-42.0) % [place] % (Auto) 4.8 (2.0-11.0) % Eos % (Auto) 0.7 L (1.0-6.0) % Baso % (Auto) 0.5 (0.0-1.0) % Lymph # (Auto) 2.01 (1.10-4.50) K/mm3 [place] # (Auto) 0.42 (0.10-0.90) K/mm3 Eos # (Auto) 0.06 (0.02-0.50) K/mm3 Baso # (Auto) 0.04 (0.00-0.10) K/mm3 Abs Immat Gran (auto) 0.04 H (0.00-0.00) K/mm3 Absolute Neuts (auto) 6.10 (1.70-7.20) K/mm3 Absolute Nucleated RBC 0.00 (0.00-0.00) K/mm3 Nucleated RBC % 0.0 (0-0.0) % Sodium 142 (136-145) mmol/L Potassium 2.9 L (3.5-5.1) mmol/L Chloride 104 (98-108) mmol/L Carbon Dioxide 28 (21-32) mmol/L Anion Gap 10 (4-12) mmol/L BUN 7 (7-18) mg/dL Creatinine 0.83 (0.55-1.02) mg/dL Estim Creat Clear Calc 61 ml/min Estimated GFR > 60 (59 - ) Glucose 104 H (70-99) mg/dL Calculated Osmolality 292 (285-295) mOsm/kg Lactic Acid 0.9 (0.4-2.0) mmol/L Calcium 8.9 (8.5-10.1) mg/dL Total Bilirubin 0.3 (0.00-1.00) mg/dL AST 14 L (15-37) U/L ALT 26 (14-59) U/L Alkaline Phosphatase 51 (46-116) U/L Total Protein 6.8 (6.4-8.2) g/dL Albumin 3.4 (3.4-5.0) g/dL Lipase 51 (16-77) U/L Stool Occult Blood Negative (Negative) Imaging Data Radiologist's impression: ITS Impressions Abdomen/Pelvis CT 04/18/24 15:24 IMPRESSION: 1. No etiology for the patient's symptoms. Critical Care Time Critical Care Time Critical Care Time: No Discharge Plan Discharge Clinical Impression: Abdominal pain, Hypokalemia, Diarrhea Patient Disposition: Home, Self-Care Condition: Stable Instructions: Hypokalemia (ED), Acute Diarrhea (ED), Abdominal Pain (ED) Additional Instructions: RETURN IF SYMPTOMS ARE WORSENING , CALL YOUR FAMILY PHYSICIAN /YOUR PARTNERSHIP DEVELOPMENT MANAGER FOR APPOINTMENT, TAKE TYLENOL NEEDED FOR ACHES AND PAIN, CONTINUE HOME MEDICATIONS. INCREASE POTASSIUM SUPPLEMENT TO TWICE A DAY INSTEAD OF ONCE A DAY Prescriptions: No Action cyclobenzaprine 10 mg tablet 10 mg PO TID gabapentin 600 mg tablet 800 mg PO TID albuterol sulfate 90 mcg/actuation HFA aerosol inhaler 2 puff INHALATION PRN atenolol 50 mg tablet 50 mg PO DAILY potassium chloride 20 mEq tablet,ER particles/crystals 20 meq PO BID lorazepam [Ativan] 0.5 mg tablet 2 mg PO BID PRN (Reason: agitation) acetaminophen-codeine 300-30 mg tablet 1 - 2 tablet PO TID PRN (Reason: Pain (Scale Score 1-3)) trazodone 100 mg tablet 200 mg PO HS Follow-up/Referrals: Lori,LUCY Garcia [Primary Care Provider] -
[2024-04-18] MEDS: SODIUM CHLORIDE 0.9% IV 1,000 ML 999 ML IV CONT (15:06)
[2024-04-18] MEDS: ONDANSETRON INJ 4 MG/2 ML VIAL IV PUSH (15:08)
[2024-04-18] MEDS: MORPHINE SULFATE (*CRX) 4 MG/ML INJ IV PUSH ×2 (15:08→16:14)
[2024-04-18 15:10] LABS: Basophils Absolute Auto 0.04 K/mm3 (0.00-0.10); Basophils Percent Auto 0.5 % (0.0-1.0); Eosinophils Absolute Auto 0.06 K/mm3 (0.02-0.50); Eosinophils Percent Auto 0.7 % (1.0-6.0); Hematocrit 37.7 % (35.0-49.0); Immature Granulocyte Absolute 0.04 K/mm3 (0.00-0.00); Immature Granulocyte Percent A 0.5 % (0.0-0.0); Lymphocytes Absolute Auto 2.01 K/mm3 (1.10-4.50); Lymphocytes Percent Auto 23.2 % (18.0-42.0); Mean Corpuscular HGB Conc 34.5 g/dL (32-36); Mean Corpuscular Hemoglobin 32.3 pg (27.0-31.0); Mean Corpuscular Volume 93.8 fL (78.0-102.0); Mean Platelet Volume 9.8 fl (9.2-11.8); Monocytes Absolute Auto 0.42 K/mm3 (0.10-0.90); Monocytes Percent Auto 4.8 % (2.0-11.0); Neutrophils Percent Auto 70.3 % (50.0-70.0); Platelet Count Result 228 K/mm3 (150-420); Red Blood Count 4.02 M/mm3 (4.20-5.40); Red Cell Distribution Width 13.1 % (11.6-14.4); White Blood Count 8.7 K/mm3 (4.8-10.8)
[2024-04-18 15:27] LABS: Alanine Aminotransferase 26 U/L (14-59); Albumin Level 3.4 g/dL (3.4-5.0); Alkaline Phosphatase 51 U/L (46-116); Anion Gap 10 mmol/L (4-12); Aspartate Amino Transferase 14 U/L (15-37); Bilirubin,Total 0.3 mg/dL (0.00-1.00); Blood Urea Nitrogen 7 mg/dL (7-18); Calcium 8.9 mg/dL (8.5-10.1); Carbon Dioxide 28 mmol/L (21-32); Chloride 104 mmol/L (98-108); Estimated CRCL calculation 61 ml/min; Estimated Glomerular Filt Rate > 60; Glucose 104 mg/dL (70-99); Lipase 51 U/L (16-77); Osmolality Calculated 292 mOsm/kg (285-295); Potassium 2.9 mmol/L (3.5-5.1); Sodium 142 mmol/L (136-145); Total Protein 6.8 g/dL (6.4-8.2)
[2024-04-18 15:29] LABS: Lactic Acid Reflex 0.9 mmol/L (0.4-2.0)
[2024-04-18 16:02] LABS: Occult Blood Negative (Negative)
[2024-04-18 16:44] VITALS: BP 114/81; PULSE 77; RESP 18; TEMP 36.7; O2SAT 96
[2024-04-18] MEDS: POTASSIUM CHLORIDE 20 MEQ PACKET (FOR LIQUID) 40 MEQ PO (16:44)
== END 2024-04-18 16:54 | disposition home or self-care (01) ==
PROVIDERS: Emergency Provider Emergency Medicine; PCP Physician Assistant
DX: R10.31 Right lower quadrant pain (principal); E87.6 Hypokalemia; R19.7 Diarrhea, unspecified; I10 Essential (primary) hypertension; F17.210 Nicotine dependence, cigarettes, uncomplicated; Z79.899 Other long term (current) drug therapy
CPT/HCPCS: 36415; 74176; 80053; 82272; 83605; 83690; 85025; 96361; 96374; 96375; 96376; 99284; A9270; J2270; J2405; J7030

== ENCOUNTER 2024-07-19 22:17 | Emergency (ER) | payer SELFPAY ==
--- OUTSIDE RECORDS SUMMARY | 2024-07-19 22:20 | XMS_ITS | Data Portability ---
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 Plan of Treatment Reminders Order Date Submit Date Provider Last Modified By Organization Details Last Modified Time Details Appointments None recorded. Lab CBC 2023 024 [facility], [address] [facility] [address], [place], [address], 4 11:16:36 CMP, serum or plasma 2023 024 [facility], [address] [place] [address] 2, [place], [address], 4 11:16:34 lipid panel, serum 2023 024 [facility], [address] [facility], [place], [address], 4 11:16:33 influenza virus A + B + SARS-CoV-2 (COVID19) Ag panel, rapid IA, upper respirator y specimen 2023 024 [facility] In-Office Order, Internal Use Only DO Not Attach Compendium DO Not Attach Compendium, Do Not Delete/merge, [id number] 4 14:17:00 rapid strep group A, throat 2023 024 [facility] In-Office Order, Internal Use Only DO Not Attach Compendium DO Not Attach Compendium, Do Not Delete/merge, [id number] 4 14:15:13 [facility]erral physical [facility] [address], [place], [address], 4 09:14:37 Procedures None recorded. Surgeries None recorded. Imaging None recorded. Medication Orders fluticason e propionate 50 mcg/actuat ion nasal spray,susp ension 2023 [facility], [address] , [place], [place], [id number], 4 14:13:02 Tessalon Perles 100 [facility], [address] [place], [place], [id number], 4 14:13:03 cetirizine 10 mg tablet 2023 [facility], [address] [place], [place], [id number], 4 14:13:00 Lomotil 2.5 mg-0.025 mg tablet 2023 024 [facility], [address] [place], [place], [id number], 4 16:35:41 ondansetro n HCl 4 mg tablet 2023 [facility], [address] [place], [place], [id number], 4 18:39:17 Patient TargetsNo targets recorded. Patient Instructions Encounter Date Encounter Id Patient Instructions Last Modified By Organization Details Last Modified Time 02/23/2024 [id number] A healthy lifestyle: care instructions [email or web address] Not available 02/23/2024 17:55:29 03/02/2024 [id number] Plan of care has been discussed with patient including expected therapeutic benefits and potential side effects of prescribed medication and treatments. Patient verbalizes understanding and is in agreement with the plan of care. Patient was instructed to keep all scheduled appointments and contact the clinic for any additional problems. [email or web address] Not available 03/04/2024 15:24:14 04/26/2024 [id number] nausea and vomiting: care instructions [email or web address] Not available 04/26/2024 18:37:43 Reason for Referral Physical Therapist Referral for Lumbar radiculopathy Referring Physician: Genaro Sandoval, Family Medicine, Encounter Date: 04/26/2024 Results Created Date Observation Date Name Description Value Unit Range Abnormal Flag Note LastModifiedBy Organization Detail LastModifiedTime 02/23/2002/25/2024 LIPID PANEL cholesterol, total 158 mg/dL 100-19 9 Not Available [address], [address], 02/25/2024 11:16:33 02/23/2002/25/2024 LIPID PANEL triglyceride s 99 mg/dL 0-149 Not Available [address], [address], 02/25/2024 11:16:33 02/23/2002/25/2024 LIPID PANEL HDL cholesterol 44 mg/dL >39 Not Available [address], [address], 02/25/2024 11:16:33 02/23/2002/25/2024 LIPID PANEL VLDL cholesterol tang 18 mg/dL 5-40 Not Available [address], [address], 02/25/2024 11:16:33 02/23/2002/25/2024 LIPID PANEL LDL chol calc ([facility] [place]) 96 mg/dL 0-99 Not Available [address], [address], 02/25/2024 11:16:33 02/23/20 24 02/25/2024 COMP. METAB OLIC PANEL (14) glucose 84 mg/dL 70-99 Not Available [address], [address], 02/25/2024 11:16:34 02/23/20 24 02/25/2024 COMP. METAB OLIC PANEL (14) BUN 7 mg/dL 6-24 Not Available [address], [address], 02/25/2024 11:16:34 02/23/20 24 02/25/2024 COMP. METAB OLIC PANEL (14) creatinine 0.74 mg/dL 0.57-1 .00 Not Available [address], [address], 02/25/2024 11:16:34 02/23/20 24 02/25/2024 COMP. METAB OLIC PANEL (14) eGFR 101 mL/mi n/1.7 3 >59 Not Available [address], [address], 02/25/2024 11:16:34 02/23/20 24 02/25/2024 COMP. METAB OLIC PANEL (14) BUN/creatini ne ratio 9 9-23 Not Available [address], [address], 02/25/2024 11:16:34 02/23/20 24 02/25/2024 COMP. METAB OLIC PANEL (14) sodium 140 mmol/ L 134-14 4 Not Available [address], [address], 02/25/2024 11:16:34 02/23/20 24 02/25/2024 COMP. METAB OLIC PANEL (14) potassium 3.2 mmol/ L 3.5-5. 2 below low normal Not Available [address], [address], 02/25/2024 11:16:34 02/23/20 24 02/25/2024 COMP. METAB OLIC PANEL (14) chloride 103 mmol/ L 96-106 Not Available [address], [address], 02/25/2024 11:16:34 02/23/20 24 02/25/2024 COMP. METAB OLIC PANEL (14) carbon dioxide, total 21 mmol/ L 20-29 Not Available [address], [address], 02/25/2024 11:16:34 02/23/20 24 02/25/2024 COMP. METAB OLIC PANEL (14) calcium 9.0 mg/dL 8.7-10 .2 Not Available [address], [address], 02/25/2024 11:16:34 02/23/20 24 02/25/2024 COMP. METAB OLIC PANEL (14) protein, total 6.1 g/dL 6.0-8. 5 Not Available [address], [address], 02/25/2024 11:16:34 02/23/20 24 02/25/2024 COMP. METAB OLIC PANEL (14) albumin 3.9 g/dL 3.9-4. 9 Not Available [address], [address], 02/25/2024 11:16:34 02/23/20 24 02/25/2024 COMP. METAB OLIC PANEL (14) globulin, total 2.2 g/dL 1.5-4. 5 Not Available [address], [address], 02/25/2024 11:16:34 02/23/20 24 02/25/2024 COMP. METAB OLIC PANEL (14) bilirubin, total 0.3 mg/dL 0.0-1. 2 Not Available [address], [address], 02/25/2024 11:16:34 02/23/20 24 02/25/2024 COMP. METAB OLIC PANEL (14) alkaline phosphatase 45 IU/L 44-121 Not Available [address], [address], 02/25/2024 11:16:34 02/23/20 24 02/25/2024 COMP. METAB OLIC PANEL (14) AST (SGOT) 21 IU/L 0-40 Not Available [address], [address], 02/25/2024 11:16:34 02/23/20 24 02/25/2024 COMP. METAB OLIC PANEL (14) ALT (SGPT) 16 IU/L 0-32 Not Available [address], [address], 02/25/2024 11:16:34 02/23/20 24 02/25/2024 CARDI OVASC ULAR REPOR T interpretati on Note Suppl ement al repor t is avail able. Not Available [address], [address], 02/25/2024 11:16:35 02/23/20 24 02/25/2024 CARDI OVASC ULAR REPOR T pdf . Not Available [address], [address], 02/25/2024 11:16:35 02/23/20 24 02/25/2024 CBC, PLATE LET, NO DIFFE RENTI AL WBC 8.1 x10e3 /uL 3.4-10 .8 Not Available [address], [address], 02/25/2024 11:16:36 02/23/20 24 02/25/2024 CBC, PLATE LET, NO DIFFE RENTI AL RBC 3.80 x10e6 /uL 3.77-5 .28 Not Available [address], [address], 02/25/2024 11:16:36 02/23/2002/25/2024 CBC, PLATE LET, NO DIFFE RENTI AL hemoglobin 12.0 g/dL 11.1-1 5.9 Not Available [address], [address], 02/25/2024 11:16:36 02/23/20 24 02/25/2024 CBC, PLATE LET, NO DIFFE RENTI AL hematocrit 36.7 % 34.0-4 6.6 Not Available [address], [address], 02/25/2024 11:16:36 02/23/20 24 02/25/2024 CBC, PLATE LET, NO DIFFE RENTI AL MCV 97 fL 79-97 Not Available [address], [address], 02/25/2024 11:16:36 02/23/2002/25/2024 CBC, PLATE LET, NO DIFFE RENTI AL MCH 31.6 pg 26.6-3 3.0 Not Available [address], [address], 02/25/2024 11:16:36 02/23/20 24 02/25/2024 CBC, PLATE LET, NO DIFFE RENTI AL MCHC 32.7 g/dL 31.5-3 5.7 Not Available [address], [address], 02/25/2024 11:16:36 02/23/20 24 02/25/2024 CBC, PLATE LET, NO DIFFE RENTI AL RDW 13.0 % 11.7-1 5.4 Not Available [address], [address], 02/25/2024 11:16:36 02/23/20 24 02/25/2024 CBC, PLATE LET, NO DIFFE RENTI AL platelets 188 x10e3 /uL 150-45 0 Not Available [address], [address], 02/25/2024 11:16:36 03/02/2003/02/2024 influ maryam virus A + B + SARS- CoV-2 (COVI D19) Ag panel , rapid IA, upper respi rator y speci men Flu A negati ve Not Available In-Office Order Internal Use Only DO Not Attach Compendium DO Not Attach Compendium, Do Not Delete/merge, 03/02/2024 13:58:27 03/02/20 24 03/02/2024 influ maryam virus A + B + SARS- CoV-2 (COVI D19) Ag panel , rapid IA, upper respi rator y speci men Flu B negati ve Not Available In-Office Order Internal Use Only DO Not Attach Compendium DO Not Attach Compendium, Do Not Delete/merge, [id number] 03/02/2024 13:58:27 03/02/20 24 03/02/2024 influ maryam virus A + B + SARS- CoV-2 (COVI D19) Ag panel , rapid IA, upper respi rator y speci men Rapid SARS CoV 2 Ag, QL IA, respiratory specimen negati ve Not Available In-Office Order Internal Use Only DO Not Attach Compendium DO Not Attach Compendium, Do Not Delete/merge, 03/02/2024 13:58:27 03/02/20 24 03/02/2024 rapid strep group A, throa t Strep negati ve Not Available In-Office Order Internal Use Only DO Not Attach Compendium DO Not Attach Compendium, Do Not Delete/merge, [id number] 03/02/2024 13:58:39 04/18/20 24 04/18/2024 CT, abdom en + pelvi s, w/o contr ast No observ ation record ed. [facility] [address] [place], [address], 04/19/2024 11:20:32 Result Notes None recorded. Problems Name Problem SNOMED Code Status Onset Date Resolution Date Notes Provider Name and Address Organization Details Recorded Time Primary fibromyalgia syndrome 06891041 Active Genaro Sandoval PA-C Attn: Accountlarissa g,[address] [place], [address], [facility] - [facility] 6 16:13:38 Respiratory distress 623944516 Active Annel Marsh MA null, [place] - [place] 6 16:00:03 Chronic obstructive pulmonary disease 90799399 Active Genaro Sandoval PA-C Attn: Accountin g,[address] [place], [address], [facility] - [facility] 6 16:13:38 Lumbar radiculopathy 458885571 Active Genaro Sandoval PA-C Attn: Accountin g,[address] [place], [address], [facility] - [facility] 6 16:13:38 Right upper quadrant pain 482295947 Active RACHEL Alvarez, [place] - [place] 6 16:00:03 Cholecystitis 97898979 Active RACHEL Alvarez, [place] - [place] 6 16:00:03 Problem Notes None recorded. Procedures Surgical History Date Name Laterality Status Provider Name and Address Organization Details Recorded Time 06/16/19 Date of Last Mammogram completed Mirella Enciso MA [place] - [place] 10/07/2022 16:45:02 06/15/19 18 Total hysterectomy completed Andria Muñiz MD Attn: Accounting,[address], [place], [address], [facility] - [facility] 01/28/2023 18:13:53 Imaging Results Imaging Date Name Status LastModified by Organiz ation Details LastModified Time 04/18/2024 CT, abdomen + pelvis, w/o contrast completed [facility] [address] [place], [address], 04/19/2024 11:20:32 Procedure Notes None recorded. Medical Equipment None Reported. Allergies Allergen ID Allergen Name Allergen Category Reaction Reaction Severity Criticality Documentation Date Start Date Code Code System Note Provider Name and Address Organization Details Recorded Time 62396 Iodinated contrast media (substanc e) medicatio n Not available Not available Not available 06/19/2014 03653 2004 SNOMED Not Available Not Available Not Available [id number] Non-stero idal anti-infl ammatory agent (product) medicatio n Not available Not available Not available 01/22/2021 91273 005 SNOMED Not Available Not Available Not Available Medications Name Sig Start Date Stop Date Status Note LastModified by Organization Details LastModified Time cyclobenz aprine 10 mg tablet TAKE ONE TABLET BY MOUTH THREE TIMES A DAY 2024 active Not Available Not Available Not Avai lable fluconazo le 100 mg tablet TAKE 2 TABLETS BY MOUTH FOR 1 DAY THEN TAKE 1 TABLET EVERY DAY FOR 9 DAYS 01/26 completed Not Available Not Available Not Available venlafaxi ne ER 75 mg capsule,e xtended release 24 hr TAKE ONE CAPSULE BY MOUTH DAILY active Not Available Not Available No t Available gabapenti n 600 mg tablet TAKE ONE TABLET BY MOUTH THREE TIMES A DAY, NEEDS APPOINTM ENT BEFORE NEXT REFILL 06/17 completed Not Available Not Available Not Available venlafaxi ne 75 mg tablet 1 daily 01/30 completed Not Available Not Available Not Available albuterol sulfate 2.5 mg/3 mL (0.083 %) solution for nebulizat ion use one vial with nebulize r every 2 hours as needed 02/02 completed Not Available Not Available Not Available cetirizin e 10 mg tablet Take 1 tablet every day by oral route as needed for 30 days. active Not Available Not Available No t Available hydrocodo ne 5 mg-acetam inophen 325 mg tablet Take 1 tablet every 8 hours by oral route for 30 days. 11/14 completed Not Available Not Available Not Available fluconazo le 200 mg tablet Take 1 tablet by oral route as directed . 09/24 completed Not Available Not Available Not Available lisinopri l 20 mg tablet Take 1 tablet every day by oral route for 90 days. 02/22 completed Not Available Not Available Not Available ondansetr on HCl 4 mg tablet Take 2 tablets twice a day by oral route as needed for 30 days. active Not Available Not Available No t Available venlafaxi ne ER 150 mg capsule,e xtended release 24 hr TAKE ONE CAPSULE BY MOUTH DAILY 04/30 completed Not Available Not Available Not Available diphenoxy late-atro pine 2.5 mg-0.025 mg tablet Take 2 tablets 4 times a day by oral route as needed for 5 days. active Not Available Not Available No t Available acetamino phen 300 mg-codein e 30 mg tablet TAKE ONE TABLET BY MOUTH THREE TIMES A DAY NEEDED 07/07 completed Not Available Not Available Not Available ciproflox acin 500 mg tablet Take 1 tablet every 12 hours by oral route for 10 days. 05/11 completed Not Available Not Available Not Available sulfameth oxazole 800 mg-trimet hoprim 160 mg tablet Take 1 tablet every 12 hours by oral route for 10 days. 09/24 completed Not Available Not Available Not Available tramadol 50 mg tablet 01/26 completed Not Available Not Available Not Available Depo-Medr ol 80 mg/mL suspensio n for injection Take 1 mL by injectio n route for 1 day. 01/30 completed Not Available Not Available Not Available oxycodone -acetamin ophen 5 mg-325 mg tablet 01/26 completed Not Available Not Available Not Available ceftriaxo ne 1 gram solution for injection Take 1 g by injectio n route. 05/12 completed Not Available Not Available Not Available potassium chloride ER 20 mEq tablet,ex tended release(p art/cryst ) Take 1 tablet twice a day by oral route for 30 days. active Not Available Not Available No t Available lorazepam 0.5 mg tablet 1 po q 8 hrs, Was given #10 02/15 completed Pt reports ER told her to take 2 tabs BID but ER Report says Q 8 hrs Not Available Not Available Not Available gabapenti n 800 mg tablet TAKE ONE TABLET BY MOUTH THREE TIMES A DAY 2023 active Not Available Not Available Not Avai lable trazodone 100 mg tablet TAKE ONE TABLET BY MOUTH TWICE A DAY active Not Available Not Available No t Available lorazepam 2 mg tablet Take 1 tablet 3 times a day by oral route for 30 days. 2024 active Not Available Not Available Not Avai lable benzonata te 100 mg capsule Take 1 capsule 3 times a day by oral route as needed for 14 days. active Not Available Not Available No t Available trazodone 150 mg tablet TAKE ONE TABLET BY MOUTH EVERY NIGHT AT BEDTIME. 06/27 completed Not Available Not Available Not Available gabapenti n 300 mg capsule TAKE 2 CAPSULES BY MOUTH EVERY MORNING, 2 CAPSULES INTHE EVENING, AND 3 CAPSULES AT BEDTIME 08/29 completed Not Available Not Available Not Available estradiol 0.5 mg tablet 09/24 completed Not Available Not Available Not Available diazepam 10 mg tablet TAKE ONE TABLET BY MOUTH THREE TIMES A DAY NEEDED active Not Available Not Available No t Available [facility] [place] 7.5 mg-325 mg tablet Take 1 tablet every 8 hours by oral route for 30 days. 01/30 completed Not Available Not Available Not Available methylpre dnisolone 4 mg tablets in a dose pack Take 1 tablet by oral route as directed . 10/25 completed Not Available Not Available Not Available albuterol sulfate HFA 90 mcg/actua tion aerosol inhaler INHALE TWO PUFFS BY MOUTH FOUR TIMES A DAY NEEDED active Not Available Not Available No t Available fluticaso ne propionat e 50 mcg/actua tion nasal spray,cyndy pension [place] 1 spray every day by intranas al route as needed. active Not Available Not Available No t Available atenolol 50 mg tablet TAKE ONE TABLET BY MOUTH DAILY active Not Available Not Available No t Available diazepam 5 mg tablet TAKE ONE TABLET BY MOUTH THREE TIMES A DAY NEEDED 07/23 completed Not Available Not Available Not Available amoxicill in 875 mg-potass ium clavulana te 125 mg tablet 10/25 completed Not Available Not Available Not Available azithromy dinorah 500 mg tablet Take 1 tablet every day by oral route for 3 days. 01/26 completed Not Available Not Available Not Available nicotine 21mg/24hr -14mg/24h r-7mg/24h r daily transderm patches,s equentl Apply 1 patch every day by transder mal route as directed for 30 days. 05/12 completed Not Available Not Available Not Available Spiriva with HandiHale r 18 mcg and inhalatio n capsules INHALE THE CONTENTS OF ONE CAPUSLE PER HANDIHAL ER DAILY 06/27 completed Not Available Not Available Not Available Cymbalta 60 mg capsule,d elayed release Take 1 capsule every day by oral route for 30 days. 10/16 completed Not Available Not Available Not Available Symbicort 80 mcg-4.5 mcg/actua tion HFA aerosol inhaler INHALE 2 PUFFS TWICE A DAY active Not Available Not Available No t Available Pancreaze 10,500-25 ,000-43,7 50 unit capsule,d elayed release 05/12 completed Not Available Not Available Not Available Vitals Date Recorded Body height Body mass index (BMI) Body weight Oxygen saturation Oxygen saturation in Arterial blood by Pulse oximetry Heart rate Systolic blood pressure Diastolic blood pressure Provider Name and Address Organization Details Last Updated DateTime 4 160.02 cm 25.9 kg/m2 02799.4 9 g 98 % 98 % 89 /min 115 mm[Hg] 79 mm[Hg] Gracie Vaughn MA [facility] 4 17:44:42 Date Recorded Body height Body mass index (BMI) Body weight Oxygen saturation Oxygen saturation in Arterial blood by Pulse oximetry Heart rate Systolic blood pressure Diastolic blood pressure Provider Name and Address Organization Details Last Updated DateTime 4 160.02 cm 26.6 kg/m2 25716.9 6 g 98 % 98 % 83 /min 135 mm[Hg] 90 mm[Hg] Gracie Vaughn MA [facility] 4 13:58:12 Date Recorded Body height Body mass index (BMI) Body weight Oxygen saturation Oxygen saturation in Arterial blood by Pulse oximetry Heart rate Systolic blood pressure Diastolic blood pressure Provider Name and Address Organization Details Last Updated DateTime 4 160.02 cm 24.8 kg/m2 79715.9 3 g 94 % 94 % 83 /min 110 mm[Hg] 75 mm[Hg] Gracie Vaughn MA [facility] 4 16:10:56 Date Recorded Body height Body mass index (BMI) Body weight Oxygen saturation Oxygen saturation in Arterial blood by Pulse oximetry Heart rate Systolic blood pressure Diastolic blood pressure Provider Name and Address Organization Details Last Updated DateTime 4 160.02 cm 25.3 kg/m2 24697.7 1 g 97 % 97 % 111 /min 124 mm[Hg] 77 mm[Hg] Gracie Vaughn MA [facility] 4 14:13:34 Date Recorded Body height Body mass index (BMI) Body weight Oxygen saturation Oxygen saturation in Arterial blood by Pulse oximetry Heart rate Systolic blood pressure Diastolic blood pressure Provider Name and Address Organization Details Last Updated DateTime 4 160.02 cm 26.1 kg/m2 80619.4 8 g 98 % 98 % 84 /min 128 mm[Hg] 88 mm[Hg] Gracie Vaughn MA [facility] 4 18:23:01 Social History Question Answer Notes LastModified by Organizat ion Details LastModified Time Tobacco Smoking Status Current Some Day Smoker Gracie Vaughn MA [facility] 07/23/2023 11:14:56 What Is Your Level Of Alcohol Consumption? None Information not available 04/30/2022 Are You Blind Or Do You Have Difficulty Seeing? Yes Reading Glasses Information not available 04/30/2022 What Is Your Level Of Caffeine Consumption? Heavy Information not available 08/30/2019 How Much Tobacco Do You Chew? None Information not available 06/27/2019 In The 14 Days Before Symptom Onset, Have You Had Close Contact With A [facility] COVID-19 While That Case Was Ill? No Information not available 01/22/2021 In The 14 Days Before Symptom Onset, Have You Had Close Contact With A Person Who Is Under Investigation For COVID-19 While That Person Was Ill? No Information not available 01/22/2021 Have You Been To An Area Known To Be High Risk For COVID-19? No Information not available 01/22/2021 Are You Currently Employed? Yes Information not available 06/22/2020 Are You Deaf Or Do You Have Serious Difficulty Hearing? No Information not available 04/30/2022 What Type Of Diet Are You Following? REGULAR Cut Back On Gluten Information not available 04/30/2022 Which Illicit Or Recreational Drugs Have You Used? None Information not available 08/30/2019 Do You Or Have You Ever Used E-cigarettes Or Vape? Never Used Electronic Cigarettes Information not available 06/27/2019 What Is Your Occupation? [employer] [place] Information not available 04/30/2022 Are There Any Guns Present In Your Home? No Information not available 01/22/2021 Hard Of Hearing Or Deaf In One Or Both Ears? No Information not available 08/30/2019 Legally Blind In One Or Both Eyes? No Information not available 08/30/2019 Live Alone Or With Others? With Others Information not available 06/27/2019 What Was The Date Of Your Most Recent Tobacco Screening? 04/26/2024 Information not available 04/26/2024 How Many Children Do You Have? 3 Information not available 08/30/2019 What Is Your Relationship Status? Information not available 01/22/2021 Do You Use Your Seat Belt Or Car Seat Routinely? Yes Information not available 01/22/2021 Do You Have Smoke And Carbon Monoxide Detectors In Your Home? Yes Information not available 01/22/2021 At What Age Did You Start Smoking Tobacco? 22 Information not available 06/27/2019 Are You Passively Exposed To Smoke? Yes Information not available 06/27/2019 Do You Or Have You Ever Used Smokeless Tobacco? Never Used Smokeless Tobacco Information not available 06/27/2019 How Much Tobacco Do You Smoke? 1 PPD Information not available 06/17/2022 General Stress Level High Information not available 06/22/2020 Do You Feel Stressed (tense, Restless, Nervous, Or Anxious, Or Unable To Sleep At Night)? [id number] Information not available 01/22/2021 Do You Use Any Illicit Or Recreational Drugs? Yes Marijuana Information not available 01/22/2021 Has Tobacco Cessation Counseling Been Provided? Yes Information not available 04/27/2023 On What Date Was Tobacco Cessation Counseling Provided? 04/26/2024 Information not available 04/26/2024 How Many Years Have You Smoked Tobacco? 20 Information not available 06/27/2019 Do You Or Have You Ever Used Any Other Forms Of Tobacco Or Nicotine? No Information not available 04/27/2023 Sex: Unknown Functional Status Question Answer Note LastModified by Organizat ion Details LastModified Time Are you able to care for yourself? Yes Information not available 06/27/2019 What is your exercise level? Occasional Information not available 04/30/2022 Mental Status None recorded. Family History Relationship Description Onset Age of this Age Resolved Age Notes LastModified by Organization Details LastModified Time Mother Depressive disorder [email or web address] Not available 01/13 16:00:04 Mother Hypertensive disorder [email or web address] Not available 01/13 16:00:04 Sister Migraine [email or web address] Not availa ble 01/31/2016 16:00:04 Notes:Lung cancer fibermyalg ia - self, mother, grandmother Medical History Condition Response Coronary Artery Disease N Other Y Atrial Fibrillation N High Blood Pressure N Thyroid Problems N Kidney or Bladder Problems N Depression Y COPD N Blood Clots N GI Problems N Skin Problems N Eating Disorder N Anemia N Heart Attack (OK) N Diabetes N Anxiety Disorder N Muscle, Joint, or Bone Problems N Seizures/Epilepsy N Acid Reflux (GERD) N Cancer N Stroke N Allergies N Asthma Y ADHD N Substance Abuse N High Cholesterol N Hepatitis N Liver Disease N Schizophrenia N Headaches N Osteoporosis N Heart Failure N Gynecological History Statement/Question Response Menses Monthly N Date of Last Pap Smear Current Control Method Hysterectom y Date of Last Mammogram 06/16/2022 Date of LMP Obstetrics History GPAL:G 4 P 3 0 1 3 Type Value Multiple Births 0 Full Term 3 Induced 0 Spontaneous 1 Premature 0 Living 3 Ectopics 0 Total 4 Immunizations Vaccine Type Date Status Note Provider Nam e and Address Organization Details Recorded Time COVID-19 vaccine, vector-nr, rS-Ad26, PF, 0.5 mL 1 completed Not Available [facility] 07/22/2023 17:16:45 Influenza, split virus, quadrivalent, preservative 7 completed Not Available [facility] 07/02/2019 02:42:36 Influenza, split virus,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
--- NOTE | 2024-07-19 22:21 | ED.URI ---
HPI - URI/Sore Throat General Chief Complaint: Back Pain/Injury Stated Complaint: URI/LQ Pain Time Seen by Provider: 07/19/24 22:20 Source: patient Mode of arrival: ambulatory Limitations: no limitations History of Present Illness HPI Narrative: patient is a 48-year-old female with right lower back pain radiating down her right leg. She also has cough and congestion. She said she tested positive for influenza A at home. MD elicited complaint: fever, cough and nasal congestion Pertinent past history: other ( negative) Onset (ago): day(s) (5) Consistency: constant Severity: moderate Pain scale (0-10): 6 Description of mucous: clear Able to tolerate fluids by mouth: Yes Exacerbating factors: nothing Relieving factors: nothing Context: sick contacts Associated symptoms: fever, myalgias, rhinorrhea, nasal congestion and cough Treatments prior to arrival: acetaminophen and ibuprofen Related Data Home Medications ?Medication ?Instructions ?Recorded ?Confirmed ?Last Taken ?Type albuterol sulfate 90 mcg/actuation 2 puff inhalation PRN 12/27/20 07/19/24 Unknown History aerosol inhaler cyclobenzaprine 10 mg tablet 10 mg PO TID 12/27/20 07/19/24 07/21/23 History gabapentin 600 mg tablet 800 mg PO TID 12/27/20 07/19/24 07/21/23 History trazodone 100 mg tablet 200 mg PO HS 07/21/23 07/19/24 07/20/23 History atenolol 50 mg tablet 50 mg PO DAILY 01/10/24 07/19/24 Unknown History lorazepam 0.5 mg tablet (Ativan) 2 mg PO BID PRN agitation 04/18/24 07/19/24 Unknown History potassium chloride 20 mEq 20 meq PO BID 04/18/24 07/19/24 Unknown History tablet,extended release(part/cryst) Allergies Allergy/AdvReac Type Severity Reaction Status Date / Time meloxicam Allergy Severe Anaphylactic Verified 07/19/24 22:56 Shock Iodinated Contrast Media Allergy Intermediate Rash Verified 07/19/24 22:56 Review of Systems Review of Systems: All systems reviewed & are unremarkable except as noted in HPI and below Constitutional: Constitutional: Reports no additional constitutional complaints Eyes: Eyes: Reports no additional eye complaints ENT: Reports system reviewed and no additional complaints, except as documented Cardiovascular: Cardiovascular: Reports no additional cardiovascular complaints Respiratory: Respiratory: Reports no additional respiratory complaints Gastrointestinal: Gastrointestinal: Reports no additional gastrointestinal complaints Genitourinary: Genitourinary: Reports no additional female genitourinary complaints Musculoskeletal: Musculoskeletal: Reports no additional musculoskeletal complaints Integumentary/Breasts: Skin/Breast: Reports system reviewed and no additional complaints, except as docu Neurologic: Reports system reviewed and no additional complaints, except as documented Psychiatric: Psychiatric: Reports no additional psychiatric complaints Endocrine: Endocrine: Reports no additional endocrine complaints Hematologic/Lymphatic: Hematologic/Lymphatic: Reports no additional hematologic/lymphatic complaints Allergic/Immunologic: Allergic/Immunologic: Reports no additional allergic/immunologic complaints PMFSH Past Medical History Medical History Hypertension Asthma Anxiety Fibromyalgia Surgical History Surgical History History of laparoscopy (~09/2005) History of dilation and curettage 2005, 09/2005 Hx of cholecystectomy (~2014) History of hysterectomy (~11/11/05) Family History Family History Mother Hypertension Grandparent Acute myocardial infarction maternal grandfather maternal grandmother Family history of stroke maternal grandmother Social History Social History Smoking packs per day: 1 Smoking cigarettes per day: 20.0 Years smoked: 20 Smoking pack-years: 20.00 Smoking status: Current every day smoker Tobacco type: cigarettes Alcohol intake: never Substance use: current Substance use type: marijuana Do You Feel Safe in your Home?: Yes Lack of Transportation: No Lack of Food: Never True Current Housing: I Have Housing Concerned About Future Housing: No Difficulty Paying Gas/Electric Bills: No Difficulty Paying for Meds: No Currently Unemployed: No Education: High School Diploma/GED Difficulty w/ Childcare or Family Care: No Living arrangements: with family Occupation/Education: occupation Gender identity (if verbalized by the patient): Female Sexual Orientation (if Verbalized by the Patient): Straight or Heterosexual Spiritual care concerns: No Exam Const: General: ill appearing Nutritional Appearance: well nourished Orientation/consciousness: patient oriented x3 Limitations: no limitations HENMT: Head: normal to inspection Ears: external ears normal Face/Nose/Sinus: Normal external nose present Eyes: Conjunctivae: conjunctivae normal Pupils: Equal, round and reactive pupils present EOM: EOMs intact bilaterally Neck: Neck: normal visual inspection Chest: Chest palpation & inspection: normal inspection of the chest Resp: Effort & Inspection: normal respiratory effort and not labored Auscultation: not clear to auscultation bilaterally, no crackles, no rales, rhonchi, no wheezes, breath sounds present and diminished lung sounds Cardio: Rate: regular rate Rhythm: regular rhythm Heart sounds: no murmurs GI: Inspection: non-distended GI Palp: Yes Soft to palpation and No Tenderness to palpation present (GI) Auscultation: normal bowel sounds : General: Yes bladder normal to palpation Back/Spine/Pelvis: Back: no CVA tenderness Other: sciatica on the right straight leg test positive Skin: General skin exam: normal color Rashes: no rashes Wounds: no wounds Neuro: General: patient oriented x3 Cranial nerves: Yes Nystagmus not present Speech: normal speech Extrem: General: normal to inspection Psych: Mental Status: mental status grossly normal Affect: normal affect Course Vital Signs Vital signs: Vital Signs Temperature 36.6 C 07/19/24 22:25 Pulse Rate 105 H 07/19/24 22:25 Respiratory Rate 20 07/19/24 22:25 Blood Pressure 114/65 07/19/24 22:25 Pulse Oximetry 97 07/19/24 22:25 Oxygen Delivery Room Air 07/19/24 22:25 Temperature 36.6 C 07/19/24 22:25 Pulse Rate 82 07/20/24 00:16 Respiratory Rate 20 07/20/24 00:16 Blood Pressure 116/72 07/20/24 00:16 Pulse Oximetry 99 07/20/24 00:16 Oxygen Delivery Room Air 07/20/24 00:16 MDM - URI/Sore Throat MDM Narrative Medical decision making narrative: patient is a 48-year-old female with right lower back pain radiating down the right leg as well as not feeling well. We will perform a COVID viral panel as well as address the right lower back. There was no injury. Patient already takes a muscle relaxer. patient has some pain medicine behavior seeking qualities. Lab Data Attestation: I reviewed the patient's lab results. Labs: Lab Results 07/19/24 07/19/24 Range/Units 22:30 23:48 Urine Color Yellow (Yellow) Urine Appearance Clear (Clear) Urine pH 6.0 (5.0-8.0) Ur Specific [place] 1.015 (1.010-1.020) Urine Protein Trace H (Negative) Urine Glucose (UA) Negative (Negative) Urine Ketones Trace H (Negative) Ur Blood (Man) Negative (Negative) Urine Nitrate Negative (Negative) Urine Bilirubin 1+ H (Negative) Urine Urobilinogen 1.0 (0.2-1.0) mg/dL Leukocyte Esterase Rfl Trace H (Negative) EARNESTINE/UL Urine RBC 0-2 (0-2) /hpf Urine WBC 0-3 (0-3) /hpf Ur Squamous Epith Cells Moderate H (Few) /hpf Urine Bacteria 1+ H (None) /hpf Urine Yeast (Budding) Present H (None) /hpf Influenza A (RT-PCR) Positive A (Negative) Influenza B (RT-PCR) Negative (Negative) RSV (RT-PCR) Negative (Negative) SARS-CoV-2 RNA (RT-PCR) Negative (Negative) Discharge Plan Discharge Clinical Impression: Influenza A Sciatica Qualifiers: Laterality: right Qualified Code(s): M54.31 - Sciatica, right side Patient Disposition: Home, Self-Care Condition: Stable Instructions: Antibiotic Form, Sciatica (ED), Influenza (DC) Patient Language: Slovak Prescriptions: New methylprednisolone [Medrol (Mauri)] 4 mg tablets,dose pack See Rx Instructions .ROUTE .COMPLEX Qty: 21 0RF Rx Instructions: orally per package directions hydrocodone-acetaminophen 5-325 mg tablet 1 tablet PO Q8H PRN (Reason: pain) Qty: 20 0RF No Action cyclobenzaprine 10 mg tablet 10 mg PO TID gabapentin 600 mg tablet 800 mg PO TID albuterol sulfate 90 mcg/actuation HFA aerosol inhaler 2 puff INHALATION PRN atenolol 50 mg tablet 50 mg PO DAILY potassium chloride 20 mEq tablet,ER particles/crystals 20 meq PO BID lorazepam [Ativan] 0.5 mg tablet 2 mg PO BID PRN (Reason: agitation) trazodone 100 mg tablet 200 mg PO HS Follow-up/Referrals: Lori,LUCY Garcia [Primary Care Provider] - Time of Disposition: 23:50
[2024-07-19 22:25] VITALS: BP 114/65; PULSE 105; RESP 20; TEMP 36.6; O2SAT 97
[2024-07-19 23:13] LABS: Influenza A QL RT-PCR Positive (Negative); Influenza B QL RT-PCR Negative (Negative); RSV RNA, RT-PCR Negative (Negative); SARS-CoV-2 RNA PCR Negative (Negative)
[2024-07-19 23:52] LABS: Add Urine Microscopic? YES; Appearance Urine Clear (Clear); Bilirubin Urine 1+ (Negative); Blood Urine Negative (Negative); Color Urine Yellow (Yellow); Glucose Urine UA Negative (Negative); Ketones Urine Trace (Negative); Leukocyte Esterase Ur Trace LEU/UL (Negative); Nitrate Urine Negative (Negative); Protein Urine Trace (Negative); Specific Grav Ur 1.015 (1.010-1.020)
[2024-07-19] MEDS: HYDROcodone/acetaminophen (*CRX) 10-325 MG TABLET 1 TAB PO (23:53)
[2024-07-19] MEDS: predniSONE 20 MG TABLET 40 MG PO (23:54)
[2024-07-19 23:59] LABS: Bacteria Urine 1+ /hpf; RBC Urine 0-2 /hpf (0-2); Squamous Epithelial Cell Urine Moderate /hpf (Few); WBC Urine 0-3 /hpf (0-3)
[2024-07-20] LABS: Budding Yeast Urine Present /hpf
[2024-07-20 00:16] VITALS: BP 116/72; PULSE 82; RESP 20; O2SAT 99
== END 2024-07-20 00:16 | disposition home or self-care (01) ==
PROVIDERS: Emergency Provider Emergency Medicine; PCP Physician Assistant
DX: J10.1 Influenza due to other identified influenza virus with other respiratory manifestations (principal); M54.31 Sciatica, right side; I10 Essential (primary) hypertension; F17.210 Nicotine dependence, cigarettes, uncomplicated; Z79.899 Other long term (current) drug therapy; Z20.822 Contact with and (suspected) exposure to COVID-19
CPT/HCPCS: 81001; 87637; 99283; A9270; J7512

== ENCOUNTER 2025-01-03 13:30 | Emergency (ER) | payer SELFPAY ==
--- NOTE | ~2025-01-03 | XR_ITS ---
HISTORY: lbp COMPARISON: Reference is made to a CT examination of the abdomen and pelvis dated 04/18/2024 TECHNIQUE: 4 view lumbar spine. FINDINGS: Lumbar vertebral bodies are normally aligned. There are 5 non-rib bearing lumbar vertebral bodies. Narrowing of the intervertebral disc space is identified at the level of T11/T12 with osteophyte form ation. Remaining disc spaces and vertebral body heights are otherwise well maintained. There are no lytic or sclerotic lesions. Paraspinal soft tissues are unremarkable. Oblique views demonstrate no fracture and normal posterior elements. IMPRESSION: Degenerative disease, most prominent at the level of T11/T12 without acute compression fracture. Reviewed, dictated and finalized at location A. IMPRESSION: Degenerative disease, most prominent at the level of T11/T12 without acute comp ression fracture.
[2025-01-03 13:30] VITALS: BP 140/99; PULSE 69; RESP 18; TEMP 36.3; O2SAT 100
--- OUTSIDE RECORDS SUMMARY | 2025-01-03 13:41 | XMS_ITS | Data Portability ---
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 management with fluticason e PRN, tessalon perles 100mg TID PRN, and cetirizine 10mg daily PRN.-Patie nt to follow up in clinic if symptoms worsen or do not improve.-E R precaution s advised. HIV screen ing declined [id number] 57208 Z53.20 [id number] Shahram Mandel MD [facility] [address] [place] [address] 04/14/2024 15:48:26 04/15/2024 12:53:07 Viral gastroenteritis caused by Rotavirus 796866057 A08.0 Body mass index 20-24 - normal 962366298 Z68.24 [id number] Shahram Mandel MD [facility] [address] [place] [address] 04/18/2024 14:06:59 04/19/2024 11:13:05 Hematochezia 539037158 K92.1 Right uppe r quadrant pain 081879461 R10.11 go to ER now [id number] Shahram Mandel MD [facility] [address] [place] [address] 04/26/2024 18:15:55 04/27/2024 09:23:12 Lumbar radiculopathy 090862716 M54.16 Nausea 824298777 R11.0 [id number] Shahram Mandel MD [facility] [address] [place] [address] 08/09/2024 17:42:23 08/10/2024 09:12:55 Lumbar radiculopathy 751831762 M54.16 Mixed anxi ety and depressive disorder 426953211 F41.8 Body mass index 20-24 - normal 478110483 Z68.24 [id number] Shahram Mandel MD [facility] [address] [place] [address] 11/22/2024 18:32:18 11/30/2024 09:17:38 Therapeutic drug monitoring assay 07592565 Z51.81 Essential hypertension 05744256 I10 Obese class I 0135947982 08934 E66.811 Generalize d anxiety disorder 30013000 F41.1 Lumbar radiculopathy 128 580786 M54.16 Health Concerns Section Related Observation LastModified by Organization Detai ls LastModified Time None Recorded Concern Status LastModified by Organization Details LastModified Time None Recorded Advance Directives Directive None Recorded Payers Insurance Date Sequence Insurance Name Policy Number Policy Valenzuela Covered Member ID Vaelnzuela Member ID Guarantor Name 08/09/2024 1 [facility] (MEDICAID HMO) [id number] Kayla Means [id number] Kayla Means 08/09/2024 [facility] (MEDICAID HMO) [id number] Kayla Means [id number] Kayla Means 08/27/2020 SLIDING FEE SCHEDULE - DISCOUNT Kayla Means 08/09/2024 1 [place] [facility] Kayla Means [id number] Kayla Means 09/14/2024 SLIDING FEE SCHEDULE - DISCOUNT Kayla Means 08/04/2024 1 *SELF PAY* Beba burroughs Means 08/09/2024 1 [facility] (MEDICAID HMO) [facility] Kayla Means [id number] Kayla Means 02/02/2019 SLIDING FEE SCHEDULE - DISCOUNT Kayla Means 08/27/2020 2 *SELF PAY* Beba burroughs Means Notes Date Note Type Note Provider Name and Address Organization Details Recorded Time 04/14/2024 text/html N/V/D for 3 days..no appetite..some fever..slowing down now... Genaro Sandoval PA-C Attn: [address] [place], [address], [facility] [place] 04/14/2024 16:36:50 04/18/2024 text/html reports black stools now for last 2 weeks...was not on pepto then...diarrhea and rt sided pain in abdomen... Genaro Sandoval PA-C Attn: [address] [place], [address], [facility] 04/18/2024 14:23:57 04/26/2024 text/html was in ER after being seen here for reported blood in stool...pain in rt side and low back down rt leg..reports leg and foot very swollen..T3 gabapentin and flexeril not helping... Genaro Sandoval PA-C Attn: [address] [place], [address], [facility], [facility] 04/26/2024 18:39:12 08/09/2024 text/html wants to resume the pain meds and DC the lorazepam...wants to try increasing the venlafaxine... Genaro Sandoval PA-C Attn: [address] [place], [address], [facility] 08/09/2024 18:45:54 11/22/2024 text/html 3 month vs controls effexor has helped..BP is a little elevated..has been taking atenolol for a year..see pulse Genaro Sandoval PA-C Attn: [address] [place], [address], [facility] 11/22/2024 19:15:09 OBGyn Episode No OBEpisode recorded.
--- NOTE | 2025-01-03 13:56 | ED_ITS ---
HPI - Back Pain/Injury General Chief Complaint: Back Pain/Injury Stated Complaint: back pain Time Seen by Provider: 01/03/25 13:38 Source: patient Mode of arrival: ambulatory Limitations: no limitations History of Present Illness HPI Narrative: 49-year-old with a history of hypertension anxiety fibromyalgia here with complaints right sided lower back pain radiating down to the upper part of the thigh for past four days. Denies any Trauma , works at [employer] ,is unable to got to work today because of pain,Denies any bladder or bowel problem MD elicited complaint: back pain Onset (ago): day(s) (4) Timing: constant Severity: moderate Quality: aching Location: lumbar spine Radiation: buttocks and right upper leg Exacerbating factors: none Relieving factors: none Associated symptoms: denies other symptoms Related Data Home Medications ?Medication ?Instructions ?Recorded ?Confirmed ?Last Taken ?Type albuterol sulfate 90 mcg/actuation 2 puff inhalation PRN 12/27/20 07/19/24 Unknown History aerosol inhaler cyclobenzaprine 10 mg tablet 10 mg PO TID 12/27/20 07/19/24 07/21/23 History gabapentin 600 mg tablet 800 mg PO TID 12/27/20 07/19/24 07/21/23 History trazodone 100 mg tablet 200 mg PO HS 07/21/23 07/19/24 07/20/23 History atenolol 50 mg tablet 50 mg PO DAILY 01/10/24 07/19/24 Unknown History lorazepam 0.5 mg tablet (Ativan) 2 mg PO BID PRN agitation 04/18/24 07/19/24 Unknown History potassium chloride 20 mEq 20 meq PO BID 04/18/24 07/19/24 Unknown History tablet,extended release(part/cryst) Allergies Allergy/AdvReac Type Severity Reaction Status Date / Time meloxicam Allergy Severe Anaphylactic Verified 01/03/25 13:34 Shock Iodinated Contrast Media Allergy Intermediate Rash Verified 01/03/25 13:34 Sulfa (Sulfonamide Allergy Mild Unknown Verified 01/03/25 13:49 Antibiotics) Review of Systems Review of Systems: All systems reviewed & are unremarkable except as noted in HPI and below Constitutional: Constitutional: Reports no additional constitutional complaints Eyes: Eyes: Reports no additional eye complaints ENT: Reports system reviewed and no additional complaints, except as documented Cardiovascular: Cardiovascular: Reports no additional cardiovascular complaints Respiratory: Respiratory: Reports no additional respiratory complaints Gastrointestinal: Gastrointestinal: Reports no additional gastrointestinal complaints Musculoskeletal: Musculoskeletal: Reports as per [facility] Past Medical History Medical History Hypertension Asthma Anxiety Fibromyalgia Surgical History Surgical History History of laparoscopy (~09/2005) History of dilation and curettage 2005, 09/2005 Hx of cholecystectomy (~2014) History of hysterectomy (~11/11/05) Family History Family History Mother Hypertension Grandparent Acute myocardial infarction maternal grandfather maternal grandmother Family history of stroke maternal grandmother Social History Social History Smoking packs per day: 1 Smoking cigarettes per day: 20.0 Years smoked: 20 Smoking pack-years: 20.00 Smoking status: Current every day smoker Tobacco type: cigarettes Alcohol intake: never Substance use: current Substance use type: marijuana Do You Feel Safe in your Home?: Yes Lack of Transportation: No Lack of Food: Never True Current Housing: I Have Housing Concerned About Future Housing: No Difficulty Paying Gas/Electric Bills: No Difficulty Paying for Meds: No Currently Unemployed: No Education: High School Diploma/GED Difficulty w/ Childcare or Family Care: No Living arrangements: with family Occupation/Education: occupation Gender identity (if verbalized by the patient): Female Sexual Orientation (if Verbalized by the Patient): Straight or Heterosexual Spiritual care concerns: No Exam Narrative: GENERAL: Well-appearing, well-nourished, and in no acute distress. HEAD: Normocephalic, atraumatic. EYES: PERRLA and EOMI. ENT: Nares clear, no rhinorrhea or epistaxis. Mucous membranes moist. NECK: Supple. CHEST: Clear to auscultation. No respiratory distress. HEART: Regular rate and rhythm. No murmur heard. Normal peripheral pulses. EXTREMITIES: Normal range of motion. No edema. SLR neg SKIN: Warm, dry, no rash. NEURO: No focal deficits. Alert and oriented x3. PSYCH: Normal mood and affect. Course Vital Signs Vital signs: Vital Signs Temperature 36.3 C L 01/03/25 13:30 Pulse Rate 69 01/03/25 13:30 Respiratory Rate 18 01/03/25 13:30 Blood Pressure 140/99 H 01/03/25 13:30 Pulse Oximetry 100 01/03/25 13:30 Oxygen Delivery Room Air 01/03/25 13:30 Temperature 36.3 C L 01/03/25 13:30 Pulse Rate 69 01/03/25 13:30 Respiratory Rate 18 01/03/25 13:30 Blood Pressure 140/99 H 01/03/25 13:30 Pulse Oximetry 100 01/03/25 13:30 Oxygen Delivery Room Air 01/03/25 13:30 MDM - Back Pain/Injury Differential Diagnosis Differential diagnosis: Likely lumbar radiculopathy, sciatica and strain of lumbar region Medical Records Attestation: I reviewed the patient's medical records. Imaging Data Radiologist's impression: ITS Impressions Lumbar Spine X-Ray 01/03/25 14:10 IMPRESSION: Degenerative disease, most prominent at the level of T11/T12 without acute co mpression fracture. Discharge Plan Discharge Clinical Impression: Sciatic nerve pain Qualifiers: Laterality: right Qualified Code(s): M54.31 - Sciatica, right side Patient Disposition: Home Condition: Stable Instructions: Sciatica (ED) Additional Instructions: continue home medications Patient Language: Georgian Prescriptions: No Action cyclobenzaprine 10 mg tablet 10 mg PO TID gabapentin 600 mg tablet 800 mg PO TID albuterol sulfate 90 mcg/actuation HFA aerosol inhaler 2 puff INHALATION PRN atenolol 50 mg tablet 50 mg PO DAILY potassium chloride 20 mEq tablet,ER particles/crystals 20 meq PO BID lorazepam [Ativan] 0.5 mg tablet 2 mg PO BID PRN (Reason: agitation) methylprednisolone [Medrol (Mauri)] 4 mg tablets,dose pack See Rx Instructions .ROUTE .COMPLEX Qty: 21 0RF Rx Instructions: orally per package directions hydrocodone-acetaminophen 5-325 mg tablet 1 tablet PO Q8H PRN (Reason: pain) Qty: 20 0RF trazodone 100 mg tablet 200 mg PO HS Follow-up/Referrals: Lori,LUCY Garcia [Primary Care Provider] - Time of Disposition: 14:22
== END 2025-01-03 14:25 | disposition home or self-care (01) ==
PROVIDERS: Emergency Provider Family Medicine; PCP Physician Assistant
DX: M54.31 Sciatica, right side (principal); I10 Essential (primary) hypertension; F17.210 Nicotine dependence, cigarettes, uncomplicated
CPT/HCPCS: 72110; 99283

== ENCOUNTER 2025-02-21 15:12 | Emergency (ER) | payer BC, SELFPAY ==
[2025-02-21] VITALS (11 sets, daily range): BP systolic 118–163; BP diastolic 92–98; PULSE 59–69; RESP 15–19; TEMP 36.5; O2SAT 94–100
[2025-02-21 15:40] LABS: Hematocrit 37.0 % (35.0-49.0); Hemoglobin 12.4 g/dL (12.0-15.0); Immature Granulocyte Percent A 0.4 % (0.0-0.0); Lymphocytes Absolute Auto 2.11 K/mm3 (1.10-4.50); Mean Corpuscular HGB Conc 33.5 g/dL (32-36); Mean Corpuscular Hemoglobin 30.5 pg (27.0-31.0); Mean Corpuscular Volume 91.1 fL (78.0-102.0); Nucleated Red Blood Cells Absolute Auto 0.00 K/mm3 (0.00-0.00); Nucleated Red Blood Cells Perc 0.0 % (0-0.0); Platelet Count Result 188 K/mm3 (150-420); Red Blood Count 4.06 M/mm3 (4.20-5.40); White Blood Count 5.5 K/mm3 (4.8-10.8)
[2025-02-21 15:52] LABS: Alanine Aminotransferase 30 U/L (6-35); Albumin Level 4.1 g/dL (3.5-5.1); Alkaline Phosphatase 55 U/L (38-126); Anion Gap 5 mmol/L (4-12); Aspartate Amino Transferase 45 U/L (14-36); Bilirubin,Total 0.4 mg/dL (0.2-1.3); Blood Urea Nitrogen 10 mg/dL (7-17); Calcium 10.0 mg/dL (8.4-10.2); Carbon Dioxide 28 mmol/L (22-30); Chloride 106 mmol/L (98-107); Estimated CRCL calculation 80 ml/min; Estimated Glomerular Filt Rate > 60; Glucose 95 mg/dL (65-110); Osmolality Calculated 287 mOsm/kg (285-295); Potassium 3.8 mmol/L (3.4-5.0); Sodium 139 mmol/L (137-145); Total Protein 6.8 g/dL (6.3-8.2)
[2025-02-21 16:10] LABS: Add Urine Microscopic? YES; Appearance Urine Clear (Clear); Glucose Urine UA Negative (Negative); Leukocyte Esterase Ur Negative LEU/UL (Negative); Nitrate Urine Negative (Negative); Specific Grav Ur 1.010 (1.010-1.020)
--- NOTE | 2025-02-21 16:19 | ED.GENADULT ---
HPI - General Adult General Chief complaint: Unspecified Stated complaint: high blood pressure Time Seen by Provider: 02/21/25 15:26 Source: patient Mode of arrival: ambulatory History of Present Illness HPI narrative: 49-year-old with a history of anxiety here with a complaint of elevated blood pressure, not feeling well for the last 3 days. She states her face is flushed and blood pressure was high earlier this afternoon he denies any headache or chest pain he Onset (ago): day(s) (3) Location: head and face Radiation: non-radiation Severity: moderate Pain Consistency: intermittent Relieving factors: none Exacerbating factors: none Related Data Home Medications ?Medication ?Instructions ?Recorded ?Confirmed ?Last Taken ?Type albuterol sulfate 90 mcg/actuation 2 puff inhalation PRN 12/27/20 07/19/24 Unknown History aerosol inhaler cyclobenzaprine 10 mg tablet 10 mg PO TID 12/27/20 07/19/24 07/21/23 History gabapentin 600 mg tablet 800 mg PO TID 12/27/20 07/19/24 07/21/23 History trazodone 100 mg tablet 200 mg PO HS 07/21/23 07/19/24 07/20/23 History atenolol 50 mg tablet 50 mg PO DAILY 01/10/24 07/19/24 Unknown History lorazepam 0.5 mg tablet (Ativan) 2 mg PO BID PRN agitation 04/18/24 07/19/24 Unknown History potassium chloride 20 mEq 20 meq PO BID 04/18/24 07/19/24 Unknown History tablet,extended release(part/cryst) Allergies Allergy/AdvReac Type Severity Reaction Status Date / Time meloxicam Allergy Severe Anaphylactic Verified 02/21/25 15:20 Shock Iodinated Contrast Media Allergy Intermediate Rash Verified 02/21/25 15:20 Sulfa (Sulfonamide Allergy Mild Unknown Verified 02/21/25 15:20 Antibiotics) Review of Systems Review of Systems: All systems reviewed & are unremarkable except as noted in HPI and below Constitutional: Constitutional: Reports no additional constitutional complaints Eyes: Eyes: Reports no additional eye complaints ENT: Reports system reviewed and no additional complaints, except as documented Cardiovascular: Cardiovascular: Reports no additional cardiovascular complaints Respiratory: Respiratory: Reports no additional respiratory complaints Gastrointestinal: Gastrointestinal: Reports no additional gastrointestinal complaints Musculoskeletal: Musculoskeletal: Reports no additional musculoskeletal complaints Neurologic: Reports system reviewed and no additional complaints, except as documented Hematologic/Lymphatic: Hematologic/Lymphatic: Reports no additional hematologic/lymphatic complaints PMFSH Past Medical History Medical History Hypertension Asthma Anxiety Fibromyalgia Surgical History Surgical History History of laparoscopy (~09/2005) History of dilation and curettage 2005, 09/2005 Hx of cholecystectomy (~2014) History of hysterectomy (~11/11/05) Family History Family History Mother Hypertension Grandparent Acute myocardial infarction maternal grandfather maternal grandmother Family history of stroke maternal grandmother Social History Social History Smoking packs per day: 1 Smoking cigarettes per day: 20.0 Years smoked: 20 Smoking pack-years: 20.00 Smoking status: Current every day smoker Tobacco type: cigarettes Alcohol intake: never Substance use: current Substance use type: marijuana Do You Feel Safe in your Home?: Yes Lack of Transportation: No Lack of Food: Never True Current Housing: I Have Housing Concerned About Future Housing: No Difficulty Paying Gas/Electric Bills: No Difficulty Paying for Meds: No Currently Unemployed: No Education: High School Diploma/GED Difficulty w/ Childcare or Family Care: No Living arrangements: with family Occupation/Education: occupation Gender identity (if verbalized by the patient): Female Sexual Orientation (if Verbalized by the Patient): Straight or Heterosexual Spiritual care concerns: No Exam Narrative: GENERAL: WELL-APPEARING, WELL-NOURISHED, AND IN NO ACUTE DISTRESS. HEAD: NORMOCEPHALIC, ATRAUMATIC. EYES: PERRLA AND EOMI. ENT: NARES CLEAR, NO RHINORRHEA OR EPISTAXIS. MUCOUS MEMBRANES MOIST. NECK: SUPPLE. CHEST: CLEAR TO AUSCULTATION. NO RESPIRATORY DISTRESS. HEART: REGULAR RATE AND RHYTHM. NO MURMUR HEARD. NORMAL PERIPHERAL PULSES. ABDOMEN: SOFT, NONTENDER, NONDISTENDED, NORMAL ACTIVE BOWEL SOUNDS. EXTREMITIES: NORMAL RANGE OF MOTION. NO EDEMA. SKIN: WARM, DRY, NO RASH. NEURO: NO FOCAL DEFICITS. ALERT AND ORIENTED X3. PSYCH: NORMAL MOOD AND AFFECT. Course Course Emergency Course: patient blood pressure did gradually dropped on its own without any intervention. Informed her about the lab work. Advised to follow with her primary doctor. Vital Signs Vital signs: Vital Signs Temperature 36.5 C 02/21/25 15:12 Pulse Rate 68 02/21/25 15:12 Respiratory Rate 18 02/21/25 15:12 Blood Pressure 163/95 H 02/21/25 15:12 Pulse Oximetry 100 02/21/25 15:12 Oxygen Delivery Room Air 02/21/25 15:12 Temperature 36.5 C 02/21/25 15:12 Pulse Rate 68 02/21/25 15:12 Respiratory Rate 18 02/21/25 15:12 Blood Pressure 163/95 H 02/21/25 15:12 Pulse Oximetry 100 02/21/25 15:12 Oxygen Delivery Room Air 02/21/25 15:12 Medical Decision Making Vital Signs Vital Signs: Vital Signs Temperature 36.5 C 02/21/25 15:12 Pulse Rate 68 02/21/25 15:12 Respiratory Rate 18 02/21/25 15:12 Blood Pressure 163/95 H 02/21/25 15:12 Pulse Oximetry 100 02/21/25 15:12 Oxygen Delivery Room Air 02/21/25 15:12 Temperature 36.5 C 02/21/25 15:12 Pulse Rate 68 02/21/25 15:12 Respiratory Rate 18 02/21/25 15:12 Blood Pressure 163/95 H 02/21/25 15:12 Pulse Oximetry 100 02/21/25 15:12 Oxygen Delivery Room Air 02/21/25 15:12 Lab Data 02/21/25 15:38 02/21/25 15:38 Labs: Lab Results 02/21/25 02/21/25 Range/Units 15:38 15:57 WBC 5.5 (4.8-10.8) K/mm3 RBC 4.06 L (4.20-5.40) M/mm3 Hgb 12.4 (12.0-15.0) g/dL Hct 37.0 (35.0-49.0) % MCV 91.1 (78.0-102.0) fL MCH 30.5 (27.0-31.0) pg MCHC 33.5 (32-36) g/dL RDW 12.9 (11.6-14.4) % Plt Count 188 (150-420) K/mm3 MPV 9.8 (9.2-11.8) fl Immature Gran % (Auto) 0.4 H (0.0-0.0) % Neut % (Auto) 50.1 (50.0-70.0) % Lymph % (Auto) 38.3 (18.0-42.0) % [place] % (Auto) 6.2 (2.0-11.0) % Eos % (Auto) 4.5 (1.0-6.0) % Baso % (Auto) 0.5 (0.0-1.0) % Lymph # (Auto) 2.11 (1.10-4.50) K/mm3 [place] # (Auto) 0.34 (0.10-0.90) K/mm3 Eos # (Auto) 0.25 (0.02-0.50) K/mm3 Baso # (Auto) 0.03 (0.00-0.10) K/mm3 Abs Immat Gran (auto) 0.02 H (0.00-0.00) K/mm3 Absolute Neuts (auto) 2.76 (1.70-7.20) K/mm3 Absolute Nucleated RBC 0.00 (0.00-0.00) K/mm3 Nucleated RBC % 0.0 (0-0.0) % Sodium 139 (137-145) mmol/L Potassium 3.8 (3.4-5.0) mmol/L Chloride 106 (98-107) mmol/L Carbon Dioxide 28 (22-30) mmol/L Anion Gap 5 (4-12) mmol/L BUN 10 (7-17) mg/dL Creatinine 0.75 (0.7-1.0) mg/dL Estim Creat Clear Calc 80 ml/min Estimated GFR > 60 (59 - ) Glucose 95 (65-110) mg/dL Calculated Osmolality 287 (285-295) mOsm/kg Calcium 10.0 (8.4-10.2) mg/dL Total Bilirubin 0.4 (0.2-1.3) mg/dL AST 45 H (14-36) U/L ALT 30 (6-35) U/L Alkaline Phosphatase 55 (38-126) U/L Total Protein 6.8 (6.3-8.2) g/dL Albumin 4.1 (3.5-5.1) g/dL Urine Color Light yellow (Yellow) Urine Appearance Clear (Clear) Urine pH 6.0 (5.0-8.0) Ur Specific Cuthbert 1.010 (1.010-1.020) Urine Protein Negative (Negative) Urine Glucose (UA) Negative (Negative) Urine Ketones Negative (Negative) Ur Blood (Man) 1+ H (Negative) Urine Nitrate Negative (Negative) Urine Bilirubin Negative (Negative) Urine Urobilinogen 0.2 (0.2-1.0) mg/dL Leukocyte Esterase Rfl Negative (Negative) EARNESTINE/UL Urine RBC 3-5 H (0-2) /hpf Urine WBC None seen (0-3) /hpf Ur Squamous Epith Cells Few (Few) /hpf Urine Bacteria Trace (None) /hpf Discharge Plan Discharge Clinical Impression: Weakness, Abnormal vasomotor function Patient Disposition: Home Condition: Stable Instructions: Weakness (ED) Additional Instructions: CONTINUE HOME MEDS .FOLLOW WITH YOUR DOCTOR Patient Language: Welsh Prescriptions: No Action cyclobenzaprine 10 mg tablet 10 mg PO TID gabapentin 600 mg tablet 800 mg PO TID albuterol sulfate 90 mcg/actuation HFA aerosol inhaler 2 puff INHALATION PRN atenolol 50 mg tablet 50 mg PO DAILY potassium chloride 20 mEq tablet,ER particles/crystals 20 meq PO BID lorazepam [Ativan] 0.5 mg tablet 2 mg PO BID PRN (Reason: agitation) methylprednisolone [Medrol (Mauri)] 4 mg tablets,dose pack See Rx Instructions .ROUTE .COMPLEX Qty: 21 0RF Rx Instructions: orally per package directions hydrocodone-acetaminophen 5-325 mg tablet 1 tablet PO Q8H PRN (Reason: pain) Qty: 20 0RF trazodone 100 mg tablet 200 mg PO HS Follow-up/Referrals: Lori,LUCY Garcia [Primary Care Provider] Time of Disposition: 16:21
== END 2025-02-21 16:28 | disposition home or self-care (01) ==
PROVIDERS: Emergency Provider Family Medicine; PCP Physician Assistant
DX: I73.9 Peripheral vascular disease, unspecified (principal); R53.1 Weakness; I10 Essential (primary) hypertension; F17.210 Nicotine dependence, cigarettes, uncomplicated
CPT/HCPCS: 36415; 80053; 81001; 85025; 99283

== ENCOUNTER 2025-05-03 11:46 | Emergency (ER) | payer SELFPAY ==
--- NOTE | ~2025-05-03 | CT_ITS ---
EXAMINATION: CT brain wo con DATE: 05/03/2025 12:19 INDICATION: Dizziness TECHNIQUE: Computed tomography (CT) of the head was performed without intravenous contrast. The dose-length product was 605.33 mGy-cm. COMPARISON: May 03, 2018 FINDINGS: No gross intracranial mass effect or hemorrhage. No large acute ischemic event. Calvarial structures appear intact. Moderate opacification of the sphenoid air cells again noted. IMPRESSION: 1. No gross intracranial mass effect or hemorrhage. 2. Paranasal sinus disease similar to the previous exam. Reviewed, dictated and finalized at location A. NISTRATIVE DIRECTOR
--- NOTE | 2025-05-03 11:47 | ED.DIZZY ---
HPI - Dizziness General Chief Complaint: Dizziness Stated Complaint: dizzy & head ache Time Seen by Provider: 05/03/25 11:47 Source: patient and family Mode of arrival: ambulatory Limitations: no limitations History of Present Illness HPI Narrative: Patient is a 49-year-old female with left-sided stimulated dizziness and vertigo since this morning when she woke from sleep. No injuries. She is having associated nausea and vomiting. No other pain. MD elicited complaint: dizziness, vertigo and disequilibrium Pertinent past history: other (Hormone replacement therapy, hypertension) Onset (ago): day(s) (1) Timing: sudden onset, awoke with symptoms and constant Severity: moderate Description: sense of movement, room spinning, off-balance, difficulty walking and ongoing Context: change in body position and at rest History of similar symptoms: No Exacerbating factors: movement/ambulation, change in body position, exertion, keeping eyes open and standing Relieving factors: remaining still, rest, lying down and keeping eyes closed Associated symptoms: nausea, vomiting and ear fullness (Left side) Associated neuro symptoms: other (None) Related Data Home Medications ?Medication ?Instructions ?Recorded ?Confirmed ?Last Taken ?Type albuterol sulfate 90 mcg/actuation 2 puff inhalation PRN 12/27/20 02/22/25 Unknown History aerosol inhaler cyclobenzaprine 10 mg tablet 10 mg PO TID 12/27/20 02/22/25 07/21/23 History gabapentin 600 mg tablet 800 mg PO TID 12/27/20 02/22/25 07/21/23 History trazodone 100 mg tablet 200 mg PO HS 07/21/23 02/22/25 07/20/23 History atenolol 50 mg tablet 50 mg PO DAILY 01/10/24 02/22/25 Unknown History potassium chloride 20 mEq 20 meq PO BID 04/18/24 02/22/25 Unknown History tablet,extended release(part/cryst) venlafaxine 150 mg 150 mg PO DAILY 02/22/25 02/22/25 Unknown History capsule,extended release 24 hr (Effexor XR) Allergies Allergy/AdvReac Type Severity Reaction Status Date / Time meloxicam Allergy Severe Anaphylactic Verified 05/03/25 11:49 Shock Iodinated Contrast Media Allergy Intermediate Rash Verified 05/03/25 11:49 Sulfa (Sulfonamide Allergy Mild Unknown Verified 05/03/25 11:49 Antibiotics) Review of Systems Review of Systems: All systems reviewed & are unremarkable except as noted in HPI and below Constitutional: Constitutional: Reports no additional constitutional complaints Eyes: Eyes: Reports no additional eye complaints ENT: Reports system reviewed and no additional complaints, except as documented Cardiovascular: Cardiovascular: Reports no additional cardiovascular complaints Respiratory: Respiratory: Reports no additional respiratory complaints Gastrointestinal: Gastrointestinal: Reports no additional gastrointestinal complaints Genitourinary: Genitourinary: Reports no additional female genitourinary complaints Musculoskeletal: Musculoskeletal: Reports no additional musculoskeletal complaints Integumentary/Breasts: Skin/Breast: Reports system reviewed and no additional complaints, except as docu Neurologic: Reports system reviewed and no additional complaints, except as documented Psychiatric: Psychiatric: Reports no additional psychiatric complaints Endocrine: Endocrine: Reports no additional endocrine complaints Hematologic/Lymphatic: Hematologic/Lymphatic: Reports no additional hematologic/lymphatic complaints Allergic/Immunologic: Allergic/Immunologic: Reports no additional allergic/immunologic complaints PMFSH Past Medical History Medical History Hypertension Asthma Anxiety Fibromyalgia Surgical History Surgical History History of laparoscopy (~09/2005) History of dilation and curettage 2005, 09/2005 Hx of cholecystectomy (~2014) History of hysterectomy (~11/11/05) Family History Family History Mother Hypertension Grandparent Acute myocardial infarction maternal grandfather maternal grandmother Family history of stroke maternal grandmother Social History Social History Smoking packs per day: 1 Smoking cigarettes per day: 20.0 Years smoked: 20 Smoking pack-years: 20.00 Smoking status: Current every day smoker Tobacco type: cigarettes Second hand tobacco smoke exposure: Yes Alcohol intake: never Substance use: current Substance use type: marijuana Do You Feel Safe in your Home?: Yes Lack of Transportation: No Lack of Food: Never True Current Housing: I Have Housing Concerned About Future Housing: No Difficulty Paying Gas/Electric Bills: No Difficulty Paying for Meds: No Currently Unemployed: No Education: High School Diploma/GED Difficulty w/ Childcare or Family Care: No Living arrangements: with family Additional living arrangements comments: Occupation/Education: occupation 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 Gender identity (if verbalized by the patient): Female Sexual Orientation (if Verbalized by the Patient): Straight or Heterosexual Spiritual care concerns: No Exam Const: General: ill appearing (Due to vertigo and dizziness) Nutritional Appearance: well nourished Orientation/consciousness: patient oriented x3 Limitations: no limitations HENMT: Head: normal to inspection Ears: TM's normal bilaterally Face/Nose/Sinus: Normal external nose present Face and sinus: normal facial exam Mouth: Yes Normal oral and palatal mucosa present Eyes: Conjunctivae: conjunctivae normal Pupils: Equal, round and reactive pupils present EOM: EOMs intact bilaterally Direct Ophthalmoscopy: photophobia Neck: Neck: normal visual inspection, no lymphadenopathy and no meningeal signs Chest: Chest palpation & inspection: normal inspection of the chest, abnormal inspection of the chest and tenderness Resp: Effort & Inspection: normal respiratory effort, not labored and no retractions Auscultation: clear to auscultation bilaterally, no crackles and no rales Cardio: Rate: regular rate Rhythm: regular rhythm Heart sounds: no murmurs GI: Inspection: non-distended GI Palp: Yes Soft to palpation and No Tenderness to palpation present (GI) Auscultation: normal bowel sounds : General: Yes bladder normal to palpation Back/Spine/Pelvis: Back: no CVA tenderness Skin: General skin exam: normal color Rashes: no rashes Wounds: no wounds Neuro: General: patient oriented x3, moves all extremities, no meningeal signs, no focal motor deficits and CN's II-XI intact bilaterally Cranial nerves: Yes Nystagmus present (To the left horizontal) Speech: normal speech Gait exam (Neuro): Normal gait present (Off balance due to vertigo and dizziness only; not due to weakness) Other: Fast exam negative, NIH is 0, GCS is 15 Extrem: General: normal to inspection, no clubbing, cyanosis or edema and no pedal edema Psych: Mental Status: mental status grossly normal Affect: normal affect Attitude: cooperative Course Vital Signs Vital signs: Vital Signs Temperature 36.7 C 05/03/25 11:49 Pulse Rate 70 05/03/25 11:49 Respiratory Rate 18 05/03/25 11:49 Blood Pressure 116/87 05/03/25 11:49 Pulse Oximetry 99 05/03/25 11:49 Oxygen Delivery Room Air 05/03/25 11:49 Temperature 36.7 C 05/03/25 11:49 Pulse Rate 66 05/03/25 12:48 Respiratory Rate 16 05/03/25 12:48 Blood Pressure 116/86 05/03/25 12:48 Pulse Oximetry 100 05/03/25 12:48 Oxygen Delivery Room Air 05/03/25 12:48 MDM - Dizziness MDM Narrative Medical decision making narrative: Patient is a 49-year-old female with their to go in dizziness since this morning when she awoke from sleep with associated nausea vomiting. Zofran, dexamethasone, meclizine. CT scan of the head. EKG. UA. Lab Data Attestation: I reviewed the patient's lab results. Labs: Lab Results 05/03/25 Range/Units 12:27 Urine Color Light yellow (Yellow) Urine Appearance Clear (Clear) Urine pH 6.5 (5.0-8.0) Ur Specific [place] 1.015 (1.010-1.020) Urine Protein Negative (Negative) Urine Glucose (UA) Negative (Negative) Urine Ketones Negative (Negative) Ur Blood (Man) Negative (Negative) Urine Nitrate Negative (Negative) Urine Bilirubin Negative (Negative) Urine Urobilinogen 0.2 (0.2-1.0) mg/dL Ur Leukocyte Esterase Negative (Negative) Imaging Data Attestation: I personally reviewed and interpreted this imaging study as follows: Radiologist's impression: CT scan of the head was negative for acute process ECG Data EKG #1: Attestation: I personally reviewed and interpreted this ECG as follows: ECG completion date: 05/03/25 ECG completion time: 12:00 EKG Interpretation: normal rate, sinus rhythm, no ectopy, non-specific ST changes, normal QRS, normal QT and NL axis Discharge Plan Discharge Clinical Impression: Acute labyrinthitis Qualifiers: Laterality: left Qualified Code(s): H83.02 - Labyrinthitis, left ear Patient Disposition: Home Condition: Stable Instructions: Labyrinthitis (ED) Patient Language: Moroccan Prescriptions: New prednisone 20 mg tablet 40 mg PO DAILY 3 Days Qty: 6 0RF meclizine 25 mg tablet 25 mg PO TID PRN (Reason: dizziness) Qty: 20 0RF valacyclovir [Valtrex] 1 gram tablet 1,000 mg PO TID 7 Days Qty: 21 0RF No Action cyclobenzaprine 10 mg tablet 10 mg PO TID gabapentin 600 mg tablet 800 mg PO TID albuterol sulfate 90 mcg/actuation HFA aerosol inhaler 2 puff INHALATION PRN atenolol 50 mg tablet 50 mg PO DAILY potassium chloride 20 mEq tablet,ER particles/crystals 20 meq PO BID venlafaxine [Effexor XR] 150 mg capsule,extended release 24hr 150 mg PO DAILY estradiol 0.5 mg tablet 0.5 mg PO DAILY Qty: 90 3RF progesterone micronized [Prometrium] 200 mg capsule 200 mg PO QHS 90 Days Qty: 90 3RF trazodone 100 mg tablet 200 mg PO HS Follow-up/Referrals: Lori,LUCY Garcia [Primary Care Provider] Stand Alone Forms: Work/School Release IP Time of Disposition: 12:59
[2025-05-03 11:49] VITALS: BP 116/87; PULSE 70; RESP 18; TEMP 36.7; O2SAT 99
--- NOTE | 2025-05-03 11:52 | ECG_ITS ---
Test Date: 2025-05-03 12:00:47 Measurements Intervals [place] Rate: 61 P: 86 DE: 146 QRS: 73 QRSD: 85 T: 29 QT: 418 QTc: 423 Interpretive Statements SINUS RHYTHM NONSPECIFIC ST & T-WAVE ABNORMALITY ABNORMAL ECG Compared to ECG 01/10/2024 20:20:33 T-wave abnormality now present Sinus bradycardia no longer present Electronically Signed On 05-03-2025 17:23:21 HOURLY SIGN LANGUAGE INTERPRETER by Edgardo Cook M.D.
[2025-05-03] MEDS: dexAMETHasone SOD PHOS INJ 10 MG/ML 1 ML VIAL 8 MG IM (12:03)
[2025-05-03] MEDS: MECLIZINE HCL 25 MG TABLET PO (12:03)
[2025-05-03] MEDS: ONDANSETRON HCL ODT 4 MG TABLET PO ×2 (12:03→12:57)
[2025-05-03 12:36] LABS: Add Urine Microscopic? NO; Appearance Urine Clear (Clear); Glucose Urine UA Negative (Negative); Leukocyte Esterase Ur Negative (Negative); Nitrate Urine Negative (Negative); Specific Grav Ur 1.015 (1.010-1.020)
[2025-05-03 12:48] VITALS: BP 116/86; PULSE 66; RESP 16; O2SAT 100
[2025-05-03 13:12] VITALS: BP 104/75; PULSE 64; RESP 16; TEMP 36.6; O2SAT 97
[2025-05-03 13:20] VITALS: BP 118/77; PULSE 63; RESP 16; TEMP 36.6; O2SAT 100
--- OUTSIDE RECORDS SUMMARY | 2025-05-03 17:55 | XMS_ITS | Clinical Summary ---
Author Organization [facility] Address Replaced by [facility] [place] [address] Care Team Providers Care Hairspring I Inspector Name Role Phone Jesu Sandoval Primary Care Provider [phone] Allergies No known active allergies Medications gabapentin (NEURONTIN) 800 MG tablet Take 1 tablet (800 mg total) by mouth 2 (two) times daily. Active venlafaxine XR (EFFEXOR-XR) 150 MG 24 hr capsule Take 1 capsule (150 mg total) by mouth daily. Active atenolol-chlort halidone (TENORETIC) 100-25 MG tablet Take 1 tablet by mouth daily. Active traMADol (ULTRAM) 50 MG tabletIndicatio ns:Acute Pain < 3 Day Supply Take 1 tablet (50 mg total) by mouth 2 (two) times daily for 3 days. Indications: Acute Pain < 3 Day Supply 6 tablet 03/01/2025 Active Encounters Date Type Department Care Team Description 03/01/2025 3:24 PM CDT - 03/01/2025 6:00 PM CDT Emergency [facility] [place] [address] Cesar Marrero MD Back Pain Discharge Disposition: Home or Self Care (Routine Discharge) 03/01/2025 Travel from Last 3 Months Social History Tobacco Use Types Packs/Day Years Used Date Smoking Tobacco: Every Day Cigarettes Smokeless Tobacco: Never Tobacco Cessation:Ready to Q uit: Not Asked; Counseling Given: Not Answered Alcohol Use Standard Drinks/Week Comments Never 0 (1 standard drink = 0.6 oz pur e alcohol) Comments Unknown Sex and Gender Information Value Date Recorded Sex Assigned at Female 03/01/2025 3:32 PM CDT Legal Sex Female 9:53 PM CDT Gender Identity Female 03/01/2025 3:32 PM CDT Sexual Orientation Not on file Last Filed Vital Signs Vital Sign Reading Time Taken Comments Blood Pressure 120/87 03/01/2025 5:58 PM CDT Pulse 75 03/01/2025 5:58 PM CDT Temperature 36.2 C (97.1 F) 03/01/2025 3:30 PM CDT Respiratory Rate 20 03/01/2025 5:58 PM CDT Oxygen Saturation 98% 03/01/2025 5:58 PM CDT Inhaled Oxygen Concentration - - Weight 75.8 kg (167 lb) 03/01/2025 3:30 PM CDT Height 160 cm (5' 3) 03/01/2025 3:30 PM CDT Body Mass Index 29.58 03/01/2025 3:30 PM CDT Plan of Treatment Health Maintenance Due Date Last Done Comments Colorectal Cancer Screening Colonoscopy (10 Years) 1977 Annual Physical 1980 Hepatitis C 10/13/1995 DTaP, Tdap and Td Vaccines ( 1 - Tdap) 1996 Hepatitis B Vaccines (1 of 3 - 19+ 3-dose series) 1996 Pneumococcal Vaccine: Pediatrics (0 to 5 Years) and At-Risk Patients (6 to 49 Years) (1 of 2 - PCV) 1996 Mammogram Screening 2017 COVID-19 Vaccine (2 - 2024-2 6 season) 2025 09/20/2020 Influenza Adult (#1) 2025 05/11/2018, 05/12/2017 Hepatitis A Vaccines Aged Out No long er eligible based on patient's age to complete this topic Meningococcal B Vaccine Aged Out No l onger eligible based on patient's age to complete this topic Meningococcal Vaccine Aged Out No yobany sury eligible based on patient's age to complete this topic RSV Immunizations Under 20 Months Aged Out No longer eligible b ased on patient's age to complete this topic Procedures Procedure Name Priority Date/Time Associated Diagnosis Comments XR LUMB SPINE 3V STAT 03/01/2025 5:30 PM CDT HC CULTURE URINE W/COLONY CT STAT 03/01/2025 4:09 PM CDT HC URINALYSIS AUTO W/MICRO STAT 03/01/2025 4:09 PM CDT from Last 3 Months Results * XR LUMB SPINE 3V (03/01/2025 5:30 PM CDT) Anatomical Region Laterality Modality Spine Radiographic Estrella ging 03/01/2025 5:52 PM CDT Impressions 03/01/2025 5:54 PM CDT IMPRESSION: Minimal rightward curvature and trace grade 1 retrolisthesis of L2 on L3 but no radiographic evidence is seen to suggest acute fracture or subluxation of the lumbar spine. Referred By: Interpreted By: Nick Maya DO, 03/01/2025 5:52 PM Narrative 03/01/2025 5:54 PM CDT [address] [place] [address] Examination: XR LUMB SPINE 3V Exam time: 03/01/2025 5:30 PM Clinical history: Right-sided lower back/flank pain. Comparison: CT lumbar spine 10/25/2012. Technique: AP, lateral, and lumbosacral views of the lumbar spine. Findings: There is minimal rightward curvature of the lumbar spine. There is trace grade 1 retrolisthesis of L2 on L3. Lumbar osseous alignments are otherwise maintained. Facet alignments are maintained. Intervertebral disc space heights are maintained. Lumbar vertebral body heights are maintained. No radiographic evidence is seen to suggest acute fracture or subluxation of the lumbar spine. Surgical clips in the right upper quadrant are compatible with prior cholecystectomy. Procedure Note Nick Maya DO - 03/01/[address] [place] [address] Examination: XR LUMB SPINE 3V Exam time: 03/01/2025 5:30 PM Clinical history: Right-sided lower back/flank pain. Comparison: CT lumbar spine 10/25/2012. Technique: AP, lateral, and lumbosacral views of the lumbar spine. Findings: There is minimal rightward curvature of the lumbar spine. There is tracegrade 1 retrolisthesis of L2 on L3. Lumbar osseous alignments areotherwise maintained. Facet alignments are maintained. Intervertebraldisc space heights are maintained. Lumbar vertebral body heights aremaintained. No radiographic evidence is seen to suggest acute fracture orsubluxation of the lumbar spine. Surgical clips in the right upperquadrant are compatible with prior cholecystectomy. IMPRESSION: Minimal rightward curvature and trace grade 1 retrolisthesis of L2 on L3but no radiographic evidence is seen to suggest acute fracture orsubluxation of the lumbar spine. Referred By: Interpreted By: Nick Maya DO, 03/01/2025 5:52 PM Cesar Marrero MD GENERAL IMAGING Final Result * (ABNORMAL) URINALYSIS (03/01/2025 4:09 PM CDT) COLOR (U) YELLOW 03/01/2025 4:41 PM CDT [facility] TRANSPARENCY CLEAR 03/01/2025 4:41 PM CDT [facility] SPECIFIC GRAVITY (U) 1.015 1.000 - 1.025 03/01/2025 4:41 PM CDT [facility] U PH 5.5 5.0 - 8.0 03/01/2025 4:41 PM CDT [facility] LEUKOCYTES (U) NEGATIVE NEGATIVE 03/01/2025 4:41 PM CDT [facility] NITRITES NEGATIVE NEGATIVE 03/01/2025 4:41 PM CDT [facility] PROTEIN RANDOM (U) NEGATIVE NEGATIVE 03/01/2025 4:41 PM CDT [facility] GLUCOSE (U) NEGATIVE NEGATIVE 03/01/2025 4:41 PM CDT [facility] KETONES MG/DL (U) NEGATIVE NEGATIVE 03/01/2025 4:41 PM CDT [facility] UROBILINOGEN 0.2 <1.0 EU/DL 03/01/2025 4:41 PM CDT [facility] BILIRUBIN (U) NEGATIVE NEGATIVE 03/01/2025 4:41 PM CDT [facility] BLOOD (U) TRACE(A) NEGATIVE 03/01/2025 4:41 PM CDT [facility] WBC/HPF 0-5 0 - 5 /HPF 03/01/2025 4:41 PM CDT [facility] RBC/HPF 0-5 0 - 5 /HPF 03/01/2025 4:41 PM CDT [facility] EPI/LPF FEW /LPF 03/01/2025 4:41 PM CDT [facility] BACTERIA (U) 1+ /HPF 03/01/2025 4:41 PM CDT [facility] URINE SPECIMEN OBTAINED BY CLEAN CATCH PROCEDURE / Unknown 03/01/2025 4:09 PM CDT us Cesar Marrero MD URINE ORDERABLES Final Result [facility] [address] [place] [address], [place] [phone] * CULTURE URINE (03/01/2025 4:09 PM CDT) SPEC DESCRIPTION URINE CLEAN CATCH 03/01/2025 4:12 PM CDT [facility] SPECIAL REQUESTS NO SPECIAL REQUEST 03/01/2025 4:12 PM CDT [facility] CULTURE RESULT NO GROWTH (< OR = 1,000 CFU/ML) 03/03/2025 10:17 AM CDT [facility] URINE SPECIMEN OBTAINED BY CLEAN CATCH PROCEDURE / Unknown 03/01/2025 4:09 PM CDT 03/01/2025 6:25 PM CDT us Cesar Marrero MD MICROBIOLOGY - GENERAL ORDERABLE S Final Result [facility] [address] [place] [address], [place] [phone] [id number] [facility] [address] [place], [place] [id number], from Last 3 Months Insurance [facility] Care Teams Hairspring I Inspector Relationship Specialty Start Date End Date Jesu Sandoval PA [address] [place] [address] PCP - General PHYSICIAN SHIPFITTERS SUPERVISOR 03/01/25
--- OUTSIDE RECORDS SUMMARY | 2025-05-03 17:56 | XMS_ITS | Data Portability ---
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 [place] [address] 04/18/2024 14:06:59 04/19/2024 11:13:05 Hematochezia 751600925 K92.1 Right uppe r quadrant pain 850852600 R10.11 go to ER now [id number] Shahram Mandel MD [facility] [address] [place] [address] 04/26/2024 18:15:55 04/27/2024 09:23:12 Lumbar radiculopathy 944960657 M54.16 [facility] 636250481 R11.0 [id number] Shahram Mandel MD [facility] [address] [place] [address] 08/09/2024 17:42:23 08/10/2024 09:12:55 Lumbar radiculopathy 477607727 M54.16 Mixed anxi ety and depressive disorder 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 F41.8 Body mass index 20-24 - normal 262384314 Z68.24 [id number] Shahram Mandel MD [facility] [address] [place] [address] 11/22/2024 18:32:18 11/30/2024 09:17:38 Therapeutic drug monitoring assay 60343087 Z51.81 326415 Essential hypertension 01480701 I10 70087 Obese class I 2736272780 55421 E66.811 6229175737 Generalize d anxiety disorder 13325282 F41.1 544361 Lumbar radiculopathy 128 496894 M54.16 80414 [id number] Shahram Mandel MD [facility] [address] [place] [address] 02/15/2025 11:02:52 02/16/2025 10:03:54 Lumbar radiculopathy 120991436 M54.16 Obese class I 9145867328 29234 E66.811 [id number] [id number] Shahram Mandel MD [facility] [address] [place] [address] 02/21/2025 18:35:53 02/22/2025 16:03:26 Essential hypertension 81503585 I10 35327 Weight increased 0198230 00 R63.5 3880387 Obese class I 5572463439 73640 E66.811 E66.3 [id number] Health Concerns Section Related Observation LastModified by Organization Detai ls LastModified Time None Recorded Concern Status LastModified by Organization Details LastModified Time None Recorded Advance Directives Directive None Recorded Payers Insurance Date Sequence Insurance Name Policy Number Policy Valenzuela Covered Member ID Valenzuela Member ID Guarantor Name 08/09/2024 1 [facility] (MEDICAID HMO) [id number] Kayla Ramburn [id number] Kayla Means 08/09/2024 [facility] (MEDICAID HMO) [id number] Kayla Means [id number] Kayla Means 08/27/2020 SLIDING FEE SCHEDULE - DISCOUNT Kayla Means 03/20/2025 1 [facility] (O) [id number] Kayla Means [id number] DARCY Garza Means 02/06/2025 1 [place] [facility] Kayla Ramburn [id number] Kayla Means 03/20/2025 1 *SELF PAY* Darcy burroughs Means 02/15/2025 SLIDING FEE SCHEDULE - DISCOUNT Kayla Means 02/15/2025 1 *SELF PAY* Darcy burroughs Means 08/09/2024 1 [facility] (MEDICAID HMO) [facility] Kayla Means [id number] Kayla Means 02/02/2019 SLIDING FEE SCHEDULE - DISCOUNT Kayla Means 08/27/2020 2 *SELF PAY* Darcy burroughs Means Notes Date Note Type Note Provider Name and Address Organization Details Recorded Time 04/26/2024 text/html ROS as noted in the HPI was in ER after being seen here for reported blood in stool...pain in rt side and low back down rt leg..reports leg and foot very swollen..T3 gabapentin and flexeril not helping... Genaro Sandoval PA-C Attn: [address] [place], [address], [facility] 04/26/2024 18:39:12 08/09/2024 text/html ROS as noted in the HPI wants to resume the pain meds and DC the lorazepam...wants to try increasing the venlafaxine... Genaro Sandoval PA-C Attn: [address] [place], [address], [facility] 08/09/2024 18:45:54 11/22/2024 text/html ROS as noted in the HPI 3 month vs controls effexor has helped..BP is a little elevated..has been taking atenolol for a year..see pulse Genaro Sandoval PA-C Attn: [address]ing,[address] [facility], [place], [address], [facility] 11/22/2024 19:15:09 02/15/2025 text/html ROS as noted in the HPI 3 month vs controls ..thinks she is going thru menopause and also has nausea.. Genaro Sandoval PA-C Attn: [address]ing,[address] [facility], [place], [address], [facility] 02/15/2025 11:42:39 02/21/2025 text/html ROS as noted in the HPI went to ER with BP of 170/98...no treatment...140/9 8 when she left was told all was well..atenolol at 100 mg...has also gained 20 pounds in 3 to 6 months.. Genaro Sandoval PA-C Attn: Accounting,[address] [facility], [place], [address], [facility] 02/21/2025 18:51:56 OBGyn Episode No OBEpisode recorded.
== END 2025-05-03 13:20 | disposition home or self-care (01) ==
PROVIDERS: Emergency Provider Emergency Medicine; PCP Physician Assistant
DX: H83.02 Labyrinthitis, left ear (principal); I10 Essential (primary) hypertension; F17.210 Nicotine dependence, cigarettes, uncomplicated
CPT/HCPCS: 70450; 81003; 93005; 96372; 99284; A9270; J1100